=== PATIENT | female | born 1975 | race African-American/Black ===

== ENCOUNTER 2016-06-26 16:46 | Inpatient (IN) | payer OTHER ==
[~2016-06-26] VITALS: Ht 165.1 cm; Wt 60.1 kg
[~2016-06-26 16:46] MED LIST: DILAUDID4 MG PO; FENTANYL1 EAC5 TD; FOLIC ACID1 MG PO; HYDREA500 MG PO; HYDROXYUREA500 MG PO; MORPHINE SULFAT15 M1 PO; MULTIPLE VITAM1 EAC1 PO; PERCOCET 5/31 TABLET PO
[2016-06-26 18:32] LABS: IMM.RETIC FRACTION 33.2 % (3-19); MCH 29.5 PG (29.0-34.0); MCHC 36.7 G/DL (30.0-36.0); MCV 80.5 FL (83-99); MEAN PLAT.VOLUME 10.7 uM^3 (9.5-12.4); NRBC (%) 1.1 /100 WBC (0-0); PLATELET COUNT 392 K/uL (156-360); RBC DIS.WIDTH-CV 23.7 % (11.8-14.6); RBC DIS.WIDTH-SD 59.4 % (39-53); RED BLOOD COUNT 1.49 M/uL (3.80-5.20); RETIC HGB EQUIVALENT 35.3 (28-36); RETICULOCYTE COUNT > 18.0 % (0.5-1.8)
[2016-06-26 18:35] LABS: CHLORIDE 108 mEq/L (99-109); POTASSIUM 3.9 mEq/L (3.7-5.4); SODIUM 136 mEq/L (136-147)
[2016-06-26 18:38] LABS: GLUCOSE 95 mg/dL (70-99)
[2016-06-26 18:39] LABS: ANION GAP 9 MEQ/L (2-14)
[2016-06-26 18:40] LABS: TOTAL BILIRUBIN 6.9 mg/dL (0.0-1.0)
[2016-06-26 18:41] LABS: ALKALINE PHOSPHATASE 228 IU/L (3-129); GFR ESTIMATE (CALCULATED) > 59 mL/min/
[2016-06-26 18:42] LABS: UREA NITROGEN (BUN) 19 mg/dL (9-23)
[2016-06-26] MEDS ORDERED: HYDROXYUREA500 MG PO (19:10)
[2016-06-26] MEDS ORDERED: MORPHINE SULFAT15 M1 PO (19:11)
[2016-06-26] MEDS ORDERED: ALEVE220 M2 PO (19:11)
[2016-06-26 19:48] VITALS: BP 125/60
[2016-06-26 20:13] VITALS: BP 135/68
[2016-06-26 21:00] VITALS: BP 146/75
[2016-06-26 22:00] VITALS: BP 158/84
[2016-06-26 22:33] LABS: ADD MIUA? YES; BILIRUBIN NEGATIVE; BLOOD MODERATE; COLOR YELLOW ((YELLOW)); GLUCOSE (STRIP) NEGATIVE; KETONES NEGATIVE; LEUKOCYTES NEGATIVE; NITRITE NEGATIVE; PROTEIN (STRIP) 100; SPECIFIC GRAVITY 1.009 (1.000-1.030)
[2016-06-26 22:39] VITALS: BP 139/65
[2016-06-26 22:56] LABS: BACTERIA RARE /HPF; EPITHELIAL CELLS RARE /HPF; MUCUS TRACE /LPF; RED BLOOD CELLS 0-5 /HPF (0-5); UCUL ADDED? NO; WHITE BLOOD CELLS 0-5 /HPF (0-5)
[2016-06-27] VITALS (17 sets, daily range): BP systolic 118–157; BP diastolic 59–89
[2016-06-27 03:27] LABS: METH RESISTANT S AUREUS PCR NEGATIVE (NEGATIVE)
[2016-06-27 03:30] LABS: PROBE CHECK PASS; SPECIMEN PROCESSING CONTROL PASS
[2016-06-27 11:23] LABS: HEMATOCRIT 24.6 % (36.0-46.0); MCH 29.4 PG (29.0-34.0); MCHC 35.4 G/DL (30.0-36.0); MCV 83.1 FL (83-99); NRBC (%) 1.3 /100 WBC (0-0); RBC DIS.WIDTH-CV 21.1 % (11.8-14.6); RBC DIS.WIDTH-SD 60.4 % (39-53); WHITE BLOOD COUNT 17.1 K/uL (4.1-10.2)
[2016-06-27 11:25] LABS: RED BLOOD COUNT 2.96 M/uL (3.80-5.20)
[2016-06-27 11:31] LABS: ALKALINE PHOSPHATASE 213 IU/L (3-129); ANION GAP 8 MEQ/L (2-14); CHLORIDE 108 MEQ/L (99-109); DIRECT BILIRUBIN 4.3 mg/dL (0.0-0.3); GFR ESTIMATE (CALCULATED) > 59 mL/min/; GLUCOSE 123 mg/dL (70-99); POTASSIUM 4.2 MEQ/L (3.7-5.4); SAMPLE HEMOLYSIS CHECK 0; SAMPLE ICTERIC CHECK 2; SAMPLE LIPEMIA CHECK 0; SODIUM 139 MEQ/L (136-147); TOTAL BILIRUBIN 9.9 MG/DL (0.0-1.0); UREA NITROGEN (BUN) 18 mg/dL (9-23)
[2016-06-27 12:29] LABS: MEAN PLAT.VOLUME 10.7 uM^3 (9.5-12.4); PLATELET COUNT 353 K/uL (156-360)
[2016-06-28] VITALS (8 sets, daily range): BP systolic 109–141; BP diastolic 55–76
[2016-06-28 06:44] LABS: HEMATOCRIT 25.7 % (36.0-46.0); MCH 29.4 PG (29.0-34.0); MCHC 34.6 G/DL (30.0-36.0); MCV 84.8 FL (83-99); MEAN PLAT.VOLUME 11.2 uM^3 (9.5-12.4); NRBC (%) 0.9 /100 WBC (0-0); PLATELET COUNT 277 K/uL (156-360); RBC DIS.WIDTH-SD 58.5 % (39-53); RED BLOOD COUNT 3.03 M/uL (3.80-5.20); WHITE BLOOD COUNT 16.1 K/uL (4.1-10.2)
[2016-06-28 08:35] LABS: ANISOCYTOSIS 2+; BASOPHIL COUNT 0.1 K/uL (0-0.1); EOSINOPHIL (%) 7.3 % (0-5); EOSINOPHIL COUNT 1.2 K/uL (0-0.3); IMMATURE GRANULOCYTE (%) 0.7 % (0.0-0.7); IMMATURE GRANULOCYTE COUNT 0.1 K/uL; INSTRUMENT ABS NEUTROPHIL CT 7.8 K/uL; LYMPHOCYTE COUNT 5.3 K/uL (1.0-2.8); MACROCYTES 2+; MONOCYTE (%) 10.6 % (3-12); MONOCYTE COUNT 1.7 K/uL (0-0.8); NEUTROPHIL (%) 48.4 % (45-76); NEUTROPHIL COUNT 7.8 K/uL (1.8-6.4); PLAT.SUFFICIENCY ADEQUATE; POIKILOCYTOSIS 1+; POLYCHROMASIA 1+; SICKLE CELLS 2+
[2016-06-28 08:57] LABS: ALKALINE PHOSPHATASE 204 IU/L (3-129); ANION GAP 6 MEQ/L (2-14); CHLORIDE 105 MEQ/L (99-109); GFR ESTIMATE (CALCULATED) 53 mL/min/; GLUCOSE 112 mg/dL (70-99); POTASSIUM 4.1 MEQ/L (3.7-5.4); SAMPLE HEMOLYSIS CHECK 0; SAMPLE ICTERIC CHECK 2; SAMPLE LIPEMIA CHECK 0; TOTAL BILIRUBIN 9.4 MG/DL (0.0-1.0); UREA NITROGEN (BUN) 21 mg/dL (9-23)
[2016-06-28 09:07] LABS: SODIUM 132 MEQ/L (136-147)
[2016-06-28 14:37] LABS: AMPHETAMINES QUANT VALUE 0 NG/ML; BARBITUATES QUANT VALUE 0 NG/ML; BENZODIAZEPINES QUANT VALUE 0 NG/ML; BENZODIAZEPINES, URINE SCREEN Negative (200 ng/mL); MARIJUANA QUANT VALUE 0 NG/ML; PHENCYCLIDINE QUANT VALUE 0 NG/ML
[2016-06-29 00:49] VITALS: BP 145/73
[2016-06-29 06:44] LABS: HEMATOCRIT 23.7 % (36.0-46.0); MCH 28.9 PG (29.0-34.0); MCHC 34.2 G/DL (30.0-36.0); MCV 84.6 FL (83-99); MEAN PLAT.VOLUME 11.3 uM^3 (9.5-12.4); NRBC (%) 0.8 /100 WBC (0-0); PLATELET COUNT 237 K/uL (156-360); RBC DIS.WIDTH-CV 20.5 % (11.8-14.6); RBC DIS.WIDTH-SD 62.6 % (39-53); WHITE BLOOD COUNT 16.4 K/uL (4.1-10.2)
[2016-06-29 07:30] LABS: ALKALINE PHOSPHATASE 199 IU/L (3-129); ANION GAP 8 MEQ/L (2-14); C-REACTIVE PROTEIN 10.4 MG/L (0-10); CHLORIDE 106 MEQ/L (99-109); GFR ESTIMATE (CALCULATED) 58 mL/min/; GLUCOSE 114 mg/dL (70-99); SAMPLE HEMOLYSIS CHECK 0; SAMPLE ICTERIC CHECK 2; SAMPLE LIPEMIA CHECK 0; SODIUM 135 MEQ/L (136-147); TOTAL BILIRUBIN 10.7 MG/DL (0.0-1.0); UREA NITROGEN (BUN) 24 mg/dL (9-23)
[2016-06-29 08:01] VITALS: BP 133/70
[2016-06-29 08:35] LABS: BASOPHIL COUNT 0.1 K/uL (0-0.1); EOSINOPHIL (%) 8.9 % (0-5); EOSINOPHIL COUNT 1.5 K/uL (0-0.3); IMMATURE GRANULOCYTE (%) 0.7 % (0.0-0.7); IMMATURE GRANULOCYTE COUNT 0.1 K/uL; INSTRUMENT ABS NEUTROPHIL CT 7.6 K/uL; LYMPHOCYTE COUNT 5.2 K/uL (1.0-2.8); MONOCYTE (%) 11.7 % (3-12); MONOCYTE COUNT 1.9 K/uL (0-0.8); NEUTROPHIL (%) 46.5 % (45-76); NEUTROPHIL COUNT 7.6 K/uL (1.8-6.4)
[2016-06-29 11:25] VITALS: BP 161/76
[2016-06-29 16:27] VITALS: BP 155/86
[2016-06-29 22:06] VITALS: BP 150/81
[2016-06-30] VITALS (7 sets, daily range): BP systolic 100–165; BP diastolic 52–79
[2016-06-30 08:21] LABS: EOSINOPHIL (%) 9.6 % (0-5); EOSINOPHIL COUNT 1.5 K/uL (0-0.3); HEMATOCRIT 24.2 % (36.0-46.0); IMMATURE GRANULOCYTE (%) 0.4 % (0.0-0.7); IMMATURE GRANULOCYTE COUNT 0.1 K/uL; INSTRUMENT ABS NEUTROPHIL CT 7.4 K/uL; LYMPHOCYTE COUNT 4.7 K/uL (1.0-2.8); MCH 29.6 PG (29.0-34.0); MCHC 34.7 G/DL (30.0-36.0); MCV 85.2 FL (83-99); MEAN PLAT.VOLUME 11.6 uM^3 (9.5-12.4); MONOCYTE (%) 11.9 % (3-12); MONOCYTE COUNT 1.9 K/uL (0-0.8); NEUTROPHIL (%) 47.4 % (45-76); NEUTROPHIL COUNT 7.4 K/uL (1.8-6.4); NRBC (%) 0.5 /100 WBC (0-0); PLATELET COUNT 254 K/uL (156-360); RBC DIS.WIDTH-SD 64.8 % (39-53); RED BLOOD COUNT 2.84 M/uL (3.80-5.20); WHITE BLOOD COUNT 15.6 K/uL (4.1-10.2)
[2016-06-30 08:42] LABS: ANION GAP 5 MEQ/L (2-14); CHLORIDE 105 MEQ/L (99-109); GFR ESTIMATE (CALCULATED) 58 mL/min/; GLUCOSE 95 mg/dL (70-99); POTASSIUM 4.6 MEQ/L (3.7-5.4); SAMPLE HEMOLYSIS CHECK 0; SAMPLE ICTERIC CHECK 2; SAMPLE LIPEMIA CHECK 0; SODIUM 134 MEQ/L (136-147); UREA NITROGEN (BUN) 26 mg/dL (9-23)
[2016-06-30 10:42] LABS: HBSG INDEX 0.23
[2016-06-30 10:43] LABS: ANTI-HEPATITIS A VIRUS (IGM) Nonreactive; HAV INDEX 0.13; HPCA INDEX 0.44
[2016-06-30 10:44] LABS: ANTI-HEPATITIS B CORE (IGM) Nonreactive; HBC IgM INDEX 0.08
[2016-07-01 03:30] VITALS: BP 149/83
[2016-07-01 06:43] LABS: EOSINOPHIL (%) 9.3 % (0-5); EOSINOPHIL COUNT 1.4 K/uL (0-0.3); HEMATOCRIT 23.3 % (36.0-46.0); IMMATURE GRANULOCYTE (%) 0.5 % (0.0-0.7); IMMATURE GRANULOCYTE COUNT 0.1 K/uL; INSTRUMENT ABS NEUTROPHIL CT 6.5 K/uL; LYMPHOCYTE COUNT 5.2 K/uL (1.0-2.8); MCH 28.8 PG (29.0-34.0); MCHC 33.5 G/DL (30.0-36.0); MEAN PLAT.VOLUME 11.3 uM^3 (9.5-12.4); MONOCYTE COUNT 1.6 K/uL (0-0.8); NEUTROPHIL (%) 43.6 % (45-76); NEUTROPHIL COUNT 6.5 K/uL (1.8-6.4); NRBC (%) 0.5 /100 WBC (0-0); PLATELET COUNT 251 K/uL (156-360); RBC DIS.WIDTH-CV 21.5 % (11.8-14.6); RBC DIS.WIDTH-SD 67.3 % (39-53); RED BLOOD COUNT 2.71 M/uL (3.80-5.20); WHITE BLOOD COUNT 14.8 K/uL (4.1-10.2)
[2016-07-01 07:08] LABS: ALKALINE PHOSPHATASE 217 IU/L (3-129); ANION GAP 7 MEQ/L (2-14); CHLORIDE 110 MEQ/L (99-109); DIRECT BILIRUBIN 4.1 mg/dL (0.0-0.3); GFR ESTIMATE (CALCULATED) > 59 mL/min/; GLUCOSE 113 mg/dL (70-99); POTASSIUM 4.7 MEQ/L (3.7-5.4); SAMPLE HEMOLYSIS CHECK 0; SAMPLE ICTERIC CHECK 2; SAMPLE LIPEMIA CHECK 0; UREA NITROGEN (BUN) 26 mg/dL (9-23)
[2016-07-01 07:10] LABS: SODIUM 141 MEQ/L (136-147); TOTAL BILIRUBIN 8.2 MG/DL (0.0-1.0)
[2016-07-01 08:45] VITALS: BP 134/61
[2016-07-01 11:06] VITALS: BP 142/67
[2016-07-02 00:35] VITALS: BP 157/65
[2016-07-02 03:55] VITALS: BP 142/90
[2016-07-02 07:57] VITALS: BP 131/68
[2016-07-02 08:56] LABS: BASOPHIL COUNT 0.1 K/uL (0-0.1); EOSINOPHIL (%) 9.1 % (0-5); EOSINOPHIL COUNT 1.4 K/uL (0-0.3); HEMATOCRIT 24.4 % (36.0-46.0); IMMATURE GRANULOCYTE (%) 0.5 % (0.0-0.7); IMMATURE GRANULOCYTE COUNT 0.1 K/uL; INSTRUMENT ABS NEUTROPHIL CT 6.7 K/uL; LYMPHOCYTE COUNT 5.3 K/uL (1.0-2.8); MCH 28.8 PG (29.0-34.0); MCHC 33.2 G/DL (30.0-36.0); MCV 86.8 FL (83-99); MEAN PLAT.VOLUME 11.7 uM^3 (9.5-12.4); MONOCYTE (%) 9.8 % (3-12); MONOCYTE COUNT 1.5 K/uL (0-0.8); NEUTROPHIL (%) 44.9 % (45-76); NEUTROPHIL COUNT 6.7 K/uL (1.8-6.4); NRBC (%) 0.3 /100 WBC (0-0); PLATELET COUNT 282 K/uL (156-360); RBC DIS.WIDTH-SD 69.5 % (39-53); RED BLOOD COUNT 2.81 M/uL (3.80-5.20); WHITE BLOOD COUNT 14.9 K/uL (4.1-10.2)
[2016-07-02 09:22] LABS: ANION GAP 7 MEQ/L (2-14); CHLORIDE 108 MEQ/L (99-109); GFR ESTIMATE (CALCULATED) > 59 mL/min/; GLUCOSE 90 mg/dL (70-99); POTASSIUM 4.8 MEQ/L (3.7-5.4); SAMPLE HEMOLYSIS CHECK 0; SAMPLE ICTERIC CHECK 2; SAMPLE LIPEMIA CHECK 0; SODIUM 139 MEQ/L (136-147); UREA NITROGEN (BUN) 25 mg/dL (9-23)
[2016-07-02 11:55] VITALS: BP 133/74
[2016-07-02] MEDS ORDERED: HYDROXYUREA500 MG PO (13:20)
[2016-07-02] MEDS ORDERED: TYLENOL WITH C1 EACH PO (13:20)
== END 2016-07-02 16:04 | disposition home or self-care (01) | DRG 812 ==
LOC: EME 16:46 → EDOF 19:41 → 2EAST 19:41
PROVIDERS: Family Medicine; Hospitalist; Internal Medicine; Physician Assistant
PROC: 30233N1 Transfusion of Nonautologous Red Blood Cells into Peripheral Vein, Percutaneous Approach (ICD-10-PCS; principal; 2016-06-26)
DX: D57.00 Hb-SS disease with crisis, unspecified (principal); N17.9 Acute kidney failure, unspecified; R06.00 Dyspnea, unspecified; R74.8 Abnormal levels of other serum enzymes; G89.29 Other chronic pain; H54.41 Blindness, right eye, normal vision left eye; Z23 Encounter for immunization; Z95.828 Presence of other vascular implants and grafts; Z91.120 Patient's intentional underdosing of medication regimen due to financial hardship; Z91.19 Patient's noncompliance with other medical treatment and regimen
CPT/HCPCS: 71020; 80048; 80053; 80074; 80076; 80306 90; 81003; 85025; 85027; 85045; 86140; 86850; 86900; 86901; 86920; 87040; 87641; 93005; 94799; 99202; 99281; 99285; J1170; J1644; J1885; J2270; J2405; J7030; J7120; P9016; P9040

== ENCOUNTER 2016-09-18 19:54 | Inpatient (IN) | payer OTHER ==
[~2016-09-18] VITALS: Ht 166.4 cm; Wt 59.6 kg
[~2016-09-18 19:54] MED LIST changes: +ALEVE220 M2 PO; +TYLENOL WITH C1 EACH PO
[2016-09-18 22:46] LABS: HEMATOCRIT 12.6 % (36.0-46.0); MCH 29.2 PG (29.0-34.0); MCHC 33.3 G/DL (30.0-36.0); MCV 87.5 FL (83-99); MEAN PLAT.VOLUME 10.7 uM^3 (9.5-12.4); PLATELET COUNT 363 K/uL (156-360); RBC DIS.WIDTH-CV 26.5 % (11.8-14.6); RBC DIS.WIDTH-SD 70.3 % (39-53); RED BLOOD COUNT 1.44 M/uL (3.80-5.20); WHITE BLOOD COUNT 24.3 K/uL (4.1-10.2)
[2016-09-18 23:32] LABS: TOTAL BILIRUBIN 6.5 mg/dL (0.0-1.0)
[2016-09-18 23:33] LABS: ALKALINE PHOSPHATASE 207 IU/L (3-129)
[2016-09-18 23:36] LABS: DIRECT BILIRUBIN 2.4 mg/dL (0.0-0.3)
[2016-09-18 23:37] LABS: CREATINE KINASE 29 IU/L (1-294); LIPASE 62 U/L (1.0-51.0)
[2016-09-18 23:43] LABS: QUANTITATIVE HCG < 4.0 MIU/ML; TROP-I INTERPRETATION NEGATIVE; TROPONIN-I < 0.01 ng/mL (0.0-0.30)
[2016-09-18 23:56] LABS: EOSINOPHIL (%) 3.7 % (0-5); EOSINOPHIL COUNT 0.9 K/uL (0-0.3); HEMATOLOGY COMMENT 1 SMEAR COMPATIBLE; IMM.RETIC FRACTION 29.5 % (3-19); IMMATURE GRANULOCYTE COUNT 0.3 K/uL; INSTRUMENT ABS NEUTROPHIL CT 12.6 K/uL; LYMPHOCYTE COUNT 6.9 K/uL (1.0-2.8); MONOCYTE (%) 15.6 % (3-12); MONOCYTE COUNT 3.9 K/uL (0-0.8); NEUTROPHIL COUNT 12.6 K/uL (1.8-6.4); PLAT.SUFFICIENCY ADEQUATE; RETIC HGB EQUIVALENT 30.8 (28-36); RETICULOCYTE COUNT > 18.0 % (0.5-1.8)
[2016-09-18 23:57] LABS: SICKLE CELLS 1+
[2016-09-18 23:58] LABS: ANISOCYTOSIS 1+; MACROCYTES 1+; OVALOCYTES 1+; POIKILOCYTOSIS 2+; POLYCHROMASIA 1+; SCHISTOCYTES 1+
[2016-09-19] VITALS (18 sets, daily range): BP systolic 112–144; BP diastolic 57–85
[2016-09-19 00:04] LABS: D-DIMER ELISA > 4.00 mg/L FEU (< 0.57); INTER. NORMALIZED RATIO 1.3; PROTHROMBIN TIME 13.1 (9.2-11.2); PTT 22.5 (25-32)
[2016-09-19 00:51] LABS: CHLORIDE 110 mEq/L (99-109); POTASSIUM 4.5 mEq/L (3.7-5.4); SODIUM 137 mEq/L (136-147)
[2016-09-19 00:53] LABS: GLUCOSE 102 mg/dL (70-99)
[2016-09-19 00:54] LABS: ANION GAP 9 MEQ/L (2-14)
[2016-09-19 00:57] LABS: GFR ESTIMATE (CALCULATED) 53 mL/min/
[2016-09-19 00:58] LABS: UREA NITROGEN (BUN) 29 mg/dL (9-23)
[2016-09-19 08:39] LABS: BASOPHIL COUNT 0.1 K/uL (0-0.1); HEMATOCRIT 19.1 % (36.0-46.0); IMMATURE GRANULOCYTE (%) 0.7 % (0.0-0.7); IMMATURE GRANULOCYTE COUNT 0.1 K/uL; INSTRUMENT ABS NEUTROPHIL CT 10.7 K/uL; LYMPHOCYTE COUNT 5.4 K/uL (1.0-2.8); MCH 31.6 PG (29.0-34.0); MCHC 35.1 G/DL (30.0-36.0); MCV 90.1 FL (83-99); MEAN PLAT.VOLUME 10.9 uM^3 (9.5-12.4); MONOCYTE (%) 13.5 % (3-12); MONOCYTE COUNT 2.7 K/uL (0-0.8); NEUTROPHIL (%) 53.5 % (45-76); NEUTROPHIL COUNT 10.7 K/uL (1.8-6.4); NRBC (%) 1.3 /100 WBC (0-0); PLATELET COUNT 324 K/uL (156-360); RBC DIS.WIDTH-CV 21.5 % (11.8-14.6)
[2016-09-19 08:41] LABS: RED BLOOD COUNT 2.12 M/uL (3.80-5.20)
[2016-09-19 08:57] LABS: ANION GAP 8 MEQ/L (2-14); CHLORIDE 111 MEQ/L (99-109); GFR ESTIMATE (CALCULATED) > 59 mL/min/; GLUCOSE 129 mg/dL (70-99); POTASSIUM 4.3 MEQ/L (3.7-5.4); SAMPLE HEMOLYSIS CHECK 0; SAMPLE ICTERIC CHECK 1; SAMPLE LIPEMIA CHECK 0; SODIUM 136 MEQ/L (136-147); UREA NITROGEN (BUN) 23 mg/dL (9-23)
[2016-09-19 09:56] LABS: TROP-I INTERPRETATION NEGATIVE; TROPONIN-I < 0.01 ng/mL (0.0-0.30)
[2016-09-19 10:05] LABS: HEMATOCRIT 18.2 % (36.0-46.0); MCV 88.8 FL (83-99)
[2016-09-19 15:09] LABS: TROP-I INTERPRETATION NEGATIVE; TROPONIN-I < 0.01 ng/mL (0.0-0.30)
[2016-09-20 00:13] VITALS: BP 127/56
[2016-09-20 03:02] VITALS: BP 123/63
[2016-09-20 06:48] LABS: ABSOLUTE RETICULOCYTE CT. 0.4 M/uL (0.02-0.08); IMM.RETIC FRACTION 28.6 % (3-19)
[2016-09-20 06:50] VITALS: BP 107/55
[2016-09-20 06:50] LABS: RETICULOCYTE COUNT 15.7 % (0.5-1.8)
[2016-09-20 06:51] LABS: HEMATOCRIT 19.3 % (36.0-46.0); MCH 31.7 PG (29.0-34.0); MCHC 36.8 G/DL (30.0-36.0); MCV 86.2 FL (83-99); NRBC (%) 0.8 /100 WBC (0-0); RBC DIS.WIDTH-CV 19.6 % (11.8-14.6); RBC DIS.WIDTH-SD 54.7 % (39-53); RED BLOOD COUNT 2.24 M/uL (3.80-5.20); WHITE BLOOD COUNT 17.7 K/uL (4.1-10.2)
[2016-09-20 07:18] LABS: ALKALINE PHOSPHATASE 203 IU/L (3-129); ANION GAP 6 MEQ/L (2-14); CHLORIDE 110 MEQ/L (99-109); GFR ESTIMATE (CALCULATED) 58 mL/min/; GLUCOSE 104 mg/dL (70-99); POTASSIUM 4.9 MEQ/L (3.7-5.4); SAMPLE HEMOLYSIS CHECK 0; SAMPLE ICTERIC CHECK 1; SAMPLE LIPEMIA CHECK 0; SODIUM 137 MEQ/L (136-147); TOTAL BILIRUBIN 5.8 MG/DL (0.0-1.0); UREA NITROGEN (BUN) 23 mg/dL (9-23)
[2016-09-20 07:28] LABS: MEAN PLAT.VOLUME 10.9 uM^3 (9.5-12.4); PLAT.SUFFICIENCY ADEQUATE; PLATELET COUNT 269 K/uL (156-360)
[2016-09-20 11:10] VITALS: BP 110/55
[2016-09-20 15:10] VITALS: BP 136/65
[2016-09-20 19:00] VITALS: BP 112/56
[2016-09-21] VITALS (14 sets, daily range): BP systolic 111–149; BP diastolic 57–99
[2016-09-21 06:10] LABS: ABSOLUTE RETICULOCYTE CT. 0.3 M/uL (0.02-0.08); IMM.RETIC FRACTION 18.3 % (3-19); RETIC HGB EQUIVALENT 29.9 (28-36)
[2016-09-21 06:29] LABS: RETICULOCYTE COUNT 13.2 % (0.5-1.8)
[2016-09-21 06:43] LABS: ALKALINE PHOSPHATASE 200 IU/L (3-129); ANION GAP 8 MEQ/L (2-14); CHLORIDE 114 MEQ/L (99-109); GFR ESTIMATE (CALCULATED) 58 mL/min/; GLUCOSE 99 mg/dL (70-99); POTASSIUM 5.1 MEQ/L (3.7-5.4); SAMPLE HEMOLYSIS CHECK 0; SAMPLE ICTERIC CHECK 2; SAMPLE LIPEMIA CHECK 0; SODIUM 140 MEQ/L (136-147); TOTAL BILIRUBIN 5.9 MG/DL (0.0-1.0); UREA NITROGEN (BUN) 23 mg/dL (9-23)
[2016-09-21 06:44] LABS: HEMATOCRIT 18.8 % (36.0-46.0); MCH 30.9 PG (29.0-34.0); MCHC 35.6 G/DL (30.0-36.0); MCV 86.6 FL (83-99); NRBC (%) 0.7 /100 WBC (0-0); RBC DIS.WIDTH-CV 19.5 % (11.8-14.6); RBC DIS.WIDTH-SD 58.8 % (39-53); RED BLOOD COUNT 2.17 M/uL (3.80-5.20); WHITE BLOOD COUNT 17.7 K/uL (4.1-10.2)
[2016-09-21 06:55] LABS: MEAN PLAT.VOLUME 10.9 uM^3 (9.5-12.4); PLAT.SUFFICIENCY ADEQUATE; PLATELET COUNT 284 K/uL (156-360)
[2016-09-22 06:03] VITALS: BP 119/63
[2016-09-22 06:48] LABS: ABSOLUTE RETICULOCYTE CT. 0.2 M/uL (0.02-0.08); IMM.RETIC FRACTION 7.8 % (3-19); RETIC HGB EQUIVALENT 29.4 (28-36)
[2016-09-22 06:50] LABS: RETICULOCYTE COUNT 7.9 % (0.5-1.8)
[2016-09-22 07:01] LABS: HEMATOCRIT 25.2 % (36.0-46.0); MCH 30.9 PG (29.0-34.0); MCHC 35.3 G/DL (30.0-36.0); MCV 87.5 FL (83-99); MEAN PLAT.VOLUME 11.5 uM^3 (9.5-12.4); NRBC (%) 0.7 /100 WBC (0-0); PLATELET COUNT 309 K/uL (156-360); RBC DIS.WIDTH-CV 18.3 % (11.8-14.6); RBC DIS.WIDTH-SD 57.1 % (39-53); WHITE BLOOD COUNT 15.1 K/uL (4.1-10.2)
[2016-09-22 07:03] LABS: RED BLOOD COUNT 2.88 M/uL (3.80-5.20)
[2016-09-22 07:17] LABS: ALKALINE PHOSPHATASE 229 IU/L (3-129); ANION GAP 9 MEQ/L (2-14); CHLORIDE 112 MEQ/L (99-109); GFR ESTIMATE (CALCULATED) 49 mL/min/; GLUCOSE 83 mg/dL (70-99); POTASSIUM 5.5 MEQ/L (3.7-5.4); SAMPLE HEMOLYSIS CHECK 0; SAMPLE ICTERIC CHECK 2; SAMPLE LIPEMIA CHECK 0; SODIUM 139 MEQ/L (136-147); UREA NITROGEN (BUN) 27 mg/dL (9-23)
[2016-09-22 07:18] LABS: TOTAL BILIRUBIN 7.9 MG/DL (0.0-1.0)
[2016-09-22 07:35] VITALS: BP 170/93
[2016-09-22 11:40] VITALS: BP 143/70
[2016-09-22 15:33] VITALS: BP 166/80
[2016-09-22 20:39] VITALS: BP 160/76
[2016-09-23] VITALS (10 sets, daily range): BP systolic 70–181; BP diastolic 34–88
[2016-09-23 06:42] LABS: ABSOLUTE RETICULOCYTE CT. 0.1 M/uL (0.02-0.08); IMM.RETIC FRACTION 6.4 % (3-19); RETIC HGB EQUIVALENT 27.8 (28-36)
[2016-09-23 06:44] LABS: HEMATOCRIT 23.8 % (36.0-46.0); MCH 30.2 PG (29.0-34.0); MCV 88.8 FL (83-99); MEAN PLAT.VOLUME 11.1 uM^3 (9.5-12.4); NRBC (%) 0.4 /100 WBC (0-0); PLATELET COUNT 273 K/uL (156-360); RBC DIS.WIDTH-CV 19.2 % (11.8-14.6); RED BLOOD COUNT 2.68 M/uL (3.80-5.20); RETICULOCYTE COUNT 4.5 % (0.5-1.8); WHITE BLOOD COUNT 13.6 K/uL (4.1-10.2)
[2016-09-23 07:12] LABS: ANION GAP 8 MEQ/L (2-14); CHLORIDE 115 MEQ/L (99-109); GFR ESTIMATE (CALCULATED) 53 mL/min/; GLUCOSE 82 mg/dL (70-99); POTASSIUM 4.9 MEQ/L (3.7-5.4); SAMPLE HEMOLYSIS CHECK 0; SAMPLE ICTERIC CHECK 2; SAMPLE LIPEMIA CHECK 0; SODIUM 140 MEQ/L (136-147); UREA NITROGEN (BUN) 31 mg/dL (9-23)
[2016-09-24 07:22] LABS: HEMATOCRIT 24.2 % (36.0-46.0); IMM.RETIC FRACTION 2.7 % (3-19); MCH 30.4 PG (29.0-34.0); MCHC 33.9 G/DL (30.0-36.0); MCV 89.6 FL (83-99); NRBC (%) 0.3 /100 WBC (0-0); RBC DIS.WIDTH-CV 20.2 % (11.8-14.6); RBC DIS.WIDTH-SD 65.3 % (39-53); RETIC HGB EQUIVALENT 28.6 (28-36); WHITE BLOOD COUNT 14.5 K/uL (4.1-10.2)
[2016-09-24 07:40] LABS: RETICULOCYTE COUNT 2.9 % (0.5-1.8)
[2016-09-24 07:51] LABS: ANION GAP 7 MEQ/L (2-14); CHLORIDE 115 MEQ/L (99-109); GFR ESTIMATE (CALCULATED) 49 mL/min/; GLUCOSE 88 mg/dL (70-99); LACTATE DEHYDROGENASE 885 IU/L (20-246); POTASSIUM 5.1 MEQ/L (3.7-5.4); SAMPLE HEMOLYSIS CHECK 0; SAMPLE ICTERIC CHECK 2; SAMPLE LIPEMIA CHECK 0; SODIUM 140 MEQ/L (136-147); UREA NITROGEN (BUN) 31 mg/dL (9-23)
[2016-09-24 08:01] LABS: MEAN PLAT.VOLUME 11.5 uM^3 (9.5-12.4); PLAT.SUFFICIENCY ADEQUATE; PLATELET COUNT 304 K/uL (156-360)
[2016-09-24 09:01] VITALS: BP 141/76
[2016-09-24 15:59] VITALS: BP 154/74
[2016-09-24 23:59] VITALS: BP 148/69
[2016-09-25 08:00] VITALS: BP 147/74
[2016-09-25 09:08] LABS: IMM.RETIC FRACTION 1.5 % (3-19); RETIC HGB EQUIVALENT 29.6 (28-36)
[2016-09-25 09:11] LABS: RETICULOCYTE COUNT 1.8 % (0.5-1.8)
[2016-09-25 09:17] LABS: BASOPHIL COUNT 0.1 K/uL (0-0.1); HEMATOCRIT 22.7 % (36.0-46.0); IMMATURE GRANULOCYTE (%) 0.4 % (0.0-0.7); IMMATURE GRANULOCYTE COUNT 0.1 K/uL; INSTRUMENT ABS NEUTROPHIL CT 5.6 K/uL; LYMPHOCYTE COUNT 3.8 K/uL (1.0-2.8); MCH 30.2 PG (29.0-34.0); MCV 91.5 FL (83-99); MEAN PLAT.VOLUME 11.5 uM^3 (9.5-12.4); MONOCYTE (%) 14.2 % (3-12); MONOCYTE COUNT 1.7 K/uL (0-0.8); NEUTROPHIL (%) 45.4 % (45-76); NEUTROPHIL COUNT 5.6 K/uL (1.8-6.4); NRBC (%) 0.2 /100 WBC (0-0); PLATELET COUNT 303 K/uL (156-360); RBC DIS.WIDTH-CV 20.8 % (11.8-14.6); RBC DIS.WIDTH-SD 68.8 % (39-53); RED BLOOD COUNT 2.48 M/uL (3.80-5.20); WHITE BLOOD COUNT 12.2 K/uL (4.1-10.2)
[2016-09-25 09:36] LABS: ALKALINE PHOSPHATASE 189 IU/L (3-129); ANION GAP 7 MEQ/L (2-14); CHLORIDE 118 MEQ/L (99-109); GFR ESTIMATE (CALCULATED) 53 mL/min/; GLUCOSE 110 mg/dL (70-99); POTASSIUM 4.9 MEQ/L (3.7-5.4); SAMPLE HEMOLYSIS CHECK 0; SAMPLE ICTERIC CHECK 2; SAMPLE LIPEMIA CHECK 0; SODIUM 142 MEQ/L (136-147); TOTAL BILIRUBIN 6.5 MG/DL (0.0-1.0); UREA NITROGEN (BUN) 30 mg/dL (9-23)
[2016-09-25] MEDS ORDERED: MORPHINE SULFAT15 MG PO (16:10)
[2016-09-25] MEDS ORDERED: BENADRYL50 MG PO (16:13)
[2016-09-26 07:55] VITALS: BP 140/54
[2016-09-26 09:07] LABS: BASOPHIL COUNT 0.1 K/uL (0-0.1); EOSINOPHIL (%) 9.6 % (0-5); EOSINOPHIL COUNT 1.2 K/uL (0-0.3); HEMATOCRIT 21.9 % (36.0-46.0); IMM.RETIC FRACTION 3.7 % (3-19); IMMATURE GRANULOCYTE (%) 0.3 % (0.0-0.7); INSTRUMENT ABS NEUTROPHIL CT 6.1 K/uL; LYMPHOCYTE COUNT 3.2 K/uL (1.0-2.8); MCH 30.4 PG (29.0-34.0); MCHC 32.9 G/DL (30.0-36.0); MCV 92.4 FL (83-99); MEAN PLAT.VOLUME 11.7 uM^3 (9.5-12.4); MONOCYTE (%) 12.5 % (3-12); MONOCYTE COUNT 1.5 K/uL (0-0.8); NEUTROPHIL (%) 50.4 % (45-76); NEUTROPHIL COUNT 6.1 K/uL (1.8-6.4); NRBC (%) 0.2 /100 WBC (0-0); PLATELET COUNT 306 K/uL (156-360); RBC DIS.WIDTH-CV 21.1 % (11.8-14.6); RBC DIS.WIDTH-SD 69.9 % (39-53); RED BLOOD COUNT 2.37 M/uL (3.80-5.20); RETIC HGB EQUIVALENT 28.7 (28-36)
[2016-09-26 09:17] LABS: RETICULOCYTE COUNT 1.1 % (0.5-1.8)
[2016-09-26 09:48] LABS: ANION GAP 7 MEQ/L (2-14); CHLORIDE 119 MEQ/L (99-109); GFR ESTIMATE (CALCULATED) 49 mL/min/; GLUCOSE 90 mg/dL (70-99); LACTATE DEHYDROGENASE 816 IU/L (20-246); POTASSIUM 5.1 MEQ/L (3.7-5.4); SAMPLE HEMOLYSIS CHECK 0; SAMPLE ICTERIC CHECK 1; SAMPLE LIPEMIA CHECK 0; SODIUM 143 MEQ/L (136-147); UREA NITROGEN (BUN) 29 mg/dL (9-23)
== END 2016-09-26 14:00 | disposition home or self-care (01) | DRG 812 ==
LOC: RME 19:54 → EME 19:54 → EDOF 09-19 03:00 → 2EAST 09-19 03:00
PROVIDERS: Hospitalist; Internal Medicine; Internal Medicine Medical Oncology; Physician Assistant
PROC: 30233N1 Transfusion of Nonautologous Red Blood Cells into Peripheral Vein, Percutaneous Approach (ICD-10-PCS; principal; 2016-09-19)
DX: D57.00 Hb-SS disease with crisis, unspecified (principal); G89.29 Other chronic pain; I36.1 Nonrheumatic tricuspid (valve) insufficiency; I12.9 Hypertensive chronic kidney disease with stage 1 through stage 4 chronic kidney disease, or unspecified chronic kidney disease; N18.3 Chronic kidney disease, stage 3 (moderate); I27.2 Other secondary pulmonary hypertension; K50.90 Crohn's disease, unspecified, without complications; L29.9 Pruritus, unspecified; N17.9 Acute kidney failure, unspecified; R17 Unspecified jaundice; R94.31 Abnormal electrocardiogram [ECG] [EKG]; R40.0 Somnolence; T40.2X5A Adverse effect of other opioids, initial encounter; Z79.891 Long term (current) use of opiate analgesic; Z91.19 Patient's noncompliance with other medical treatment and regimen
CPT/HCPCS: 71010; 71020; 71275; 73030; 80048; 80053; 80076; 81003; 82550; 83605; 83615; 83690; 84484; 84702; 85014; 85018; 85025; 85027; 85045; 85379; 85610; 85730; 86900; 86901; 86920; 87040; 93005; 94799; 99281; 99285; J1170; J1200; J1644; J1885; J2270; J2405; J7030; J7050; P9016; P9040

== ENCOUNTER → 2016-10-22 | Outpatient (CLI) | payer OTHER ==
[~2016-10-22] MED LIST changes: +BENADRYL50 MG PO; +MORPHINE SULFAT15 MG PO
== END | disposition home or self-care (01) ==
LOC: NUC 08:30
DX: D57.00 Hb-SS disease with crisis, unspecified (principal); R94.31 Abnormal electrocardiogram [ECG] [EKG]
CPT/HCPCS: 93017

== ENCOUNTER → 2016-10-23 | Outpatient (CLI) | payer OTHER | END | disposition home or self-care (01) | LOC: NUC 08:30 | DX: D57.00 Hb-SS disease with crisis, unspecified (principal); R94.31 Abnormal electrocardiogram [ECG] [EKG] | CPT/HCPCS: 78451; 93017; A9500; C1753 ==

== ENCOUNTER 2016-11-28 21:27 | Inpatient (IN) | payer OTHER ==
[~2016-11-28] VITALS: Ht 165.1 cm; Wt 57.2 kg
[2016-11-28 23:16] LABS: ABSOLUTE RETICULOCYTE CT. 0.2 M/uL (0.02-0.08); IMM.RETIC FRACTION 27.9 % (3-19); RETIC HGB EQUIVALENT 34.2 (28-36); RETICULOCYTE COUNT 13.2 % (0.5-1.8)
[2016-11-28 23:21] LABS: HEMATOCRIT 12.7 % (36.0-46.0); MCH 29.7 PG (29.0-34.0); MCV 80.4 FL (83-99); MEAN PLAT.VOLUME 10.7 uM^3 (9.5-12.4); NRBC (%) 0.4 /100 WBC (0-0); PLATELET COUNT 466 K/uL (156-360); RBC DIS.WIDTH-CV 18.7 % (11.8-14.6); RBC DIS.WIDTH-SD 50.7 % (39-53); RED BLOOD COUNT 1.58 M/uL (3.80-5.20); WHITE BLOOD COUNT 22.6 K/uL (4.1-10.2)
[2016-11-28 23:32] LABS: CHLORIDE 105 mEq/L (99-109); POTASSIUM 3.6 mEq/L (3.7-5.4); SODIUM 135 mEq/L (136-147)
[2016-11-28 23:34] LABS: GLUCOSE 122 mg/dL (70-99)
[2016-11-28 23:35] LABS: ANION GAP 11 MEQ/L (2-14)
[2016-11-28 23:36] LABS: TOTAL BILIRUBIN 4.6 mg/dL (0.0-1.0)
[2016-11-28 23:38] LABS: ALKALINE PHOSPHATASE 234 IU/L (3-129); GFR ESTIMATE (CALCULATED) 46 mL/min/
[2016-11-28 23:39] LABS: UREA NITROGEN (BUN) 33 mg/dL (9-23)
[2016-11-28 23:40] LABS: DIRECT BILIRUBIN 1.6 mg/dL (0.0-0.3); TROP-I INTERPRETATION NEGATIVE; TROPONIN-I < 0.01 ng/mL (0.0-0.30)
[2016-11-28 23:41] LABS: LIPASE 31 U/L (1.0-51.0)
[2016-11-28 23:52] LABS: QUANTITATIVE HCG < 4.0 MIU/ML
[2016-11-29] VITALS (22 sets, daily range): BP systolic 102–157; BP diastolic 7–91
[2016-11-29 00:15] LABS: INTER. NORMALIZED RATIO 1.4; PROTHROMBIN TIME 15.3 SEC (10.2-12.9)
[2016-11-29 00:17] LABS: PTT 31.3 SEC (25-37)
[2016-11-29 07:57] LABS: ANION GAP 7 MEQ/L (2-14); CHLORIDE 112 MEQ/L (99-109); SAMPLE HEMOLYSIS CHECK 0; SAMPLE ICTERIC CHECK 1; SAMPLE LIPEMIA CHECK 0; SODIUM 138 MEQ/L (136-147); TOTAL BILIRUBIN 3.7 MG/DL (0.0-1.0)
[2016-11-29 07:58] LABS: HEMATOCRIT 18.7 % (36.0-46.0); MCH 29.2 PG (29.0-34.0); MCHC 35.3 G/DL (30.0-36.0); MCV 82.7 FL (83-99); MEAN PLAT.VOLUME 10.3 uM^3 (9.5-12.4); NRBC (%) 0.5 /100 WBC (0-0); PLATELET COUNT 377 K/uL (156-360); POTASSIUM 4.9 MEQ/L (3.7-5.4); RBC DIS.WIDTH-SD 52.2 % (39-53)
[2016-11-29 07:59] LABS: RED BLOOD COUNT 2.26 M/uL (3.80-5.20)
[2016-11-29 08:03] LABS: ALKALINE PHOSPHATASE 202 IU/L (3-129); GFR ESTIMATE (CALCULATED) 49 mL/min/; GLUCOSE 125 mg/dL (70-99); UREA NITROGEN (BUN) 31 mg/dL (9-23)
[2016-11-29 08:07] LABS: TROP-I INTERPRETATION NEGATIVE; TROPONIN-I 0.01 ng/mL (0.0-0.30)
[2016-11-29 10:39] LABS: ADD MIUA? YES; BILIRUBIN NEGATIVE; BLOOD MODERATE; COLOR YELLOW ((YELLOW)); GLUCOSE (STRIP) NEGATIVE; KETONES NEGATIVE; LEUKOCYTES NEGATIVE; NITRITE NEGATIVE; PROTEIN (STRIP) NEGATIVE; SPECIFIC GRAVITY 1.005 (1.000-1.030); UROBILINOGEN 0.2 MG/DL (0.2-1.0)
[2016-11-29 10:44] LABS: BACTERIA NONE SEEN /HPF; EPITHELIAL CELLS RARE /HPF; MUCUS NONE SEEN /LPF; RED BLOOD CELLS 0-5 /HPF (0-5); WHITE BLOOD CELLS NONE SEEN /HPF (0-5)
[2016-11-29 13:33] LABS: TROP-I INTERPRETATION NEGATIVE; TROPONIN-I < 0.01 ng/mL (0.0-0.30)
[2016-11-29 19:02] LABS: HEMATOCRIT 27.4 % (36.0-46.0)
[2016-11-30 05:31] VITALS: BP 130/75
[2016-11-30 07:13] LABS: HEMATOCRIT 24.7 % (36.0-46.0); MCH 29.8 PG (29.0-34.0); MCHC 35.2 G/DL (30.0-36.0); MCV 84.6 FL (83-99); MEAN PLAT.VOLUME 10.8 uM^3 (9.5-12.4); NRBC (%) 0.4 /100 WBC (0-0); PLATELET COUNT 348 K/uL (156-360); RBC DIS.WIDTH-CV 18.6 % (11.8-14.6); RBC DIS.WIDTH-SD 56.5 % (39-53)
[2016-11-30 07:20] LABS: RED BLOOD COUNT 2.92 M/uL (3.80-5.20)
[2016-11-30 07:41] LABS: ANION GAP 6 MEQ/L (2-14); CHLORIDE 112 MEQ/L (99-109); GFR ESTIMATE (CALCULATED) 53 mL/min/; GLUCOSE 95 mg/dL (70-99); POTASSIUM 4.1 MEQ/L (3.7-5.4); SAMPLE HEMOLYSIS CHECK 0; SAMPLE ICTERIC CHECK 1; SAMPLE LIPEMIA CHECK 0; SODIUM 140 MEQ/L (136-147); UREA NITROGEN (BUN) 28 mg/dL (9-23)
[2016-11-30 07:54] VITALS: BP 124/67
[2016-11-30 16:27] VITALS: BP 126/63
[2016-11-30 20:32] VITALS: BP 139/68
[2016-11-30 23:47] VITALS: BP 144/66
[2016-12-01 03:48] VITALS: BP 140/64
[2016-12-01 08:06] VITALS: BP 170/86
[2016-12-01 08:36] LABS: HEMATOCRIT 25.8 % (36.0-46.0); MCH 30.2 PG (29.0-34.0); MCHC 35.3 G/DL (30.0-36.0); MCV 85.7 FL (83-99); NRBC (%) 0.3 /100 WBC (0-0); PLATELET COUNT 336 K/uL (156-360); RBC DIS.WIDTH-CV 19.5 % (11.8-14.6); RBC DIS.WIDTH-SD 59.4 % (39-53); RED BLOOD COUNT 3.01 M/uL (3.80-5.20); WHITE BLOOD COUNT 14.8 K/uL (4.1-10.2)
[2016-12-01 09:05] LABS: ANION GAP 7 MEQ/L (2-14); CHLORIDE 110 MEQ/L (99-109); GFR ESTIMATE (CALCULATED) 43 mL/min/; GLUCOSE 86 mg/dL (70-99); SAMPLE HEMOLYSIS CHECK 0; SAMPLE ICTERIC CHECK 1; SAMPLE LIPEMIA CHECK 0; SODIUM 139 MEQ/L (136-147); UREA NITROGEN (BUN) 33 mg/dL (9-23)
[2016-12-01 11:12] VITALS: BP 160/93
[2016-12-01 11:40] LABS: DIRECT BILIRUBIN 1.5 mg/dL (0.0-0.3)
[2016-12-01 11:41] LABS: TOTAL BILIRUBIN 4.5 MG/DL (0.0-1.0)
[2016-12-01 16:19] LABS: ABSOLUTE RETICULOCYTE CT. 0.1 M/uL (0.02-0.08)
[2016-12-01 16:24] LABS: RETICULOCYTE COUNT 3.7 % (0.5-1.8)
[2016-12-01 18:42] VITALS: BP 158/76
[2016-12-01 23:27] VITALS: BP 140/87
[2016-12-02 03:41] VITALS: BP 160/76
[2016-12-02 06:04] LABS: HEMATOCRIT 24.5 % (36.0-46.0); IMM.RETIC FRACTION 5.8 % (3-19); MCH 29.4 PG (29.0-34.0); MCHC 34.3 G/DL (30.0-36.0); MCV 85.7 FL (83-99); NRBC (%) 0.4 /100 WBC (0-0); RBC DIS.WIDTH-CV 19.4 % (11.8-14.6); RED BLOOD COUNT 2.86 M/uL (3.80-5.20); RETIC HGB EQUIVALENT 30.5 (28-36); WHITE BLOOD COUNT 12.6 K/uL (4.1-10.2)
[2016-12-02 06:21] LABS: RETICULOCYTE COUNT 2.7 % (0.5-1.8)
[2016-12-02 07:05] LABS: ANION GAP 8 MEQ/L (2-14); CHLORIDE 113 MEQ/L (99-109); GFR ESTIMATE (CALCULATED) 58 mL/min/; GLUCOSE 69 mg/dL (70-99); MEAN PLAT.VOLUME 10.9 uM^3 (9.5-12.4); PLAT.SUFFICIENCY ADEQUATE; PLATELET COUNT 329 K/uL (156-360); POTASSIUM 4.9 MEQ/L (3.7-5.4); SAMPLE HEMOLYSIS CHECK 0; SAMPLE ICTERIC CHECK 1; SAMPLE LIPEMIA CHECK 0; SODIUM 140 MEQ/L (136-147); UREA NITROGEN (BUN) 32 mg/dL (9-23)
[2016-12-02 08:00] VITALS: BP 167/85
[2016-12-02 08:10] LABS: LACTATE DEHYDROGENASE 655 IU/L (20-246)
[2016-12-02 11:55] VITALS: BP 160/83
[2016-12-02 16:07] VITALS: BP 177/86
[2016-12-02 20:51] VITALS: BP 168/90
[2016-12-02 23:36] VITALS: BP 168/114
[2016-12-03 07:01] LABS: IMM.RETIC FRACTION 8.2 % (3-19); RETIC HGB EQUIVALENT 27.7 (28-36); RETICULOCYTE COUNT 1.3 % (0.5-1.8)
[2016-12-03 07:37] VITALS: BP 162/78
[2016-12-03 07:49] LABS: LACTATE DEHYDROGENASE 715 IU/L (20-246)
[2016-12-03 09:40] LABS: ANION GAP 9 MEQ/L (2-14); CHLORIDE 112 MEQ/L (99-109); GFR ESTIMATE (CALCULATED) 46 mL/min/; POTASSIUM 4.7 MEQ/L (3.7-5.4); SODIUM 140 MEQ/L (136-147); UREA NITROGEN (BUN) 35 mg/dL (9-23)
[2016-12-03 09:41] LABS: GLUCOSE 105 mg/dL (70-99)
[2016-12-03 10:50] LABS: HEMATOCRIT 24.8 % (36.0-46.0); MCH 30.5 PG (29.0-34.0); MCHC 34.7 G/DL (30.0-36.0); MCV 87.9 FL (83-99); NRBC (%) 0.3 /100 WBC (0-0); RBC DIS.WIDTH-CV 19.9 % (11.8-14.6); RBC DIS.WIDTH-SD 63.2 % (39-53); RED BLOOD COUNT 2.82 M/uL (3.80-5.20); WHITE BLOOD COUNT 12.6 K/uL (4.1-10.2)
[2016-12-03 11:18] LABS: MEAN PLAT.VOLUME 11.6 uM^3 (9.5-12.4); PLATELET COUNT 342 K/uL (156-360)
[2016-12-03 12:38] VITALS: BP 158/84
[2016-12-03] MEDS ORDERED: MORPHINE SULFAT15 MG PO (13:01)
[2016-12-03 16:52] VITALS: BP 159/93
[2016-12-03 20:15] VITALS: BP 137/105
[2016-12-03 23:55] VITALS: BP 140/77
[2016-12-04] VITALS (7 sets, daily range): BP systolic 132–179; BP diastolic 76–88
[2016-12-04 08:55] LABS: HEMATOCRIT 25.7 % (36.0-46.0); IMM.RETIC FRACTION 7.7 % (3-19); MCH 29.1 PG (29.0-34.0); MCHC 33.9 G/DL (30.0-36.0); NRBC (%) 0.3 /100 WBC (0-0); PLATELET COUNT 329 K/uL (156-360); RBC DIS.WIDTH-CV 19.3 % (11.8-14.6); RBC DIS.WIDTH-SD 59.9 % (39-53); RED BLOOD COUNT 2.99 M/uL (3.80-5.20); RETIC HGB EQUIVALENT 29.6 (28-36); WHITE BLOOD COUNT 11.7 K/uL (4.1-10.2)
[2016-12-04 09:07] LABS: RETICULOCYTE COUNT 0.9 % (0.5-1.8)
[2016-12-04 09:19] LABS: ALKALINE PHOSPHATASE 207 IU/L (3-129); ANION GAP 7 MEQ/L (2-14); CHLORIDE 112 MEQ/L (99-109); DIRECT BILIRUBIN 1.5 mg/dL (0.0-0.3); GFR ESTIMATE (CALCULATED) 53 mL/min/; GLUCOSE 114 mg/dL (70-99); LACTATE DEHYDROGENASE 702 IU/L (20-246); POTASSIUM 4.7 MEQ/L (3.7-5.4); SAMPLE HEMOLYSIS CHECK 0; SAMPLE ICTERIC CHECK 1; SAMPLE LIPEMIA CHECK 0; SODIUM 140 MEQ/L (136-147); TOTAL BILIRUBIN 4.2 MG/DL (0.0-1.0); UREA NITROGEN (BUN) 34 mg/dL (9-23)
[2016-12-05 04:00] VITALS: BP 155/89
[2016-12-05 06:16] LABS: IMM.RETIC FRACTION 3.5 % (3-19); MCH 28.6 PG (29.0-34.0); MCHC 33.5 G/DL (30.0-36.0); MCV 85.5 FL (83-99); NRBC (%) 0.2 /100 WBC (0-0); PLATELET COUNT 293 K/uL (156-360); RBC DIS.WIDTH-SD 58.9 % (39-53); RED BLOOD COUNT 2.69 M/uL (3.80-5.20); RETIC HGB EQUIVALENT 29.7 (28-36); WHITE BLOOD COUNT 12.7 K/uL (4.1-10.2)
[2016-12-05 06:43] LABS: ANION GAP 7 MEQ/L (2-14); CHLORIDE 109 MEQ/L (99-109); GFR ESTIMATE (CALCULATED) 46 mL/min/; GLUCOSE 102 mg/dL (70-99); LACTATE DEHYDROGENASE 644 IU/L (20-246); POTASSIUM 4.8 MEQ/L (3.7-5.4); SAMPLE HEMOLYSIS CHECK 0; SAMPLE ICTERIC CHECK 1; SAMPLE LIPEMIA CHECK 0; SODIUM 138 MEQ/L (136-147); UREA NITROGEN (BUN) 37 mg/dL (9-23)
[2016-12-05 06:46] LABS: RETICULOCYTE COUNT 0.7 % (0.5-1.8)
[2016-12-05 07:30] VITALS: BP 135/83
[2016-12-05] MEDS ORDERED: AMLODIPINE BESY10 MG PO (10:57)
[2016-12-05] MEDS ORDERED: HYDROXYUREA500 MG PO (10:57)
[2016-12-05] MEDS ORDERED: MORPHINE SULFAT15 MG PO (10:59)
[2016-12-05 11:10] VITALS: BP 123/70
== END 2016-12-05 15:15 | disposition home or self-care (01) | DRG 812 ==
LOC: EME 21:27 → 3EAST 11-29 00:32 → EDOF 11-29 00:32 → ENRESERV 11-29 00:36 → EDOF 11-29 07:43 → ENRESERV 11-29 16:26 → 3EAST 11-29 17:18
PROVIDERS: Emergency Medicine; Internal Medicine; Internal Medicine Medical Oncology; Physician Assistant
PROC: 30233N1 Transfusion of Nonautologous Red Blood Cells into Peripheral Vein, Percutaneous Approach (ICD-10-PCS; principal; 2016-11-29)
DX: D57.00 Hb-SS disease with crisis, unspecified (principal); M54.9 Dorsalgia, unspecified; R17 Unspecified jaundice; N17.9 Acute kidney failure, unspecified; I27.2 Other secondary pulmonary hypertension; H54.41 Blindness, right eye, normal vision left eye; I10 Essential (primary) hypertension; D72.829 Elevated white blood cell count, unspecified; H33.21 Serous retinal detachment, right eye; R07.9 Chest pain, unspecified; R79.89 Other specified abnormal findings of blood chemistry; R11.0 Nausea; M79.601 Pain in right arm
CPT/HCPCS: 71020; 80048; 80053; 80076; 81003; 82247; 82248; 83605; 83615; 83690; 84484; 84702; 85014; 85018; 85027; 85045; 85610; 85730; 86900; 86901; 86920; 87040; 87086; 93005; 94010; 99281; 99285; J0696; J1940; J2270; J2405; J2765; J3480; J7030; J7050; P9016; P9040

== ENCOUNTER 2017-02-10 12:27 | Inpatient (IN) | payer OTHER ==
[2017-02-10] VITALS (9 sets, daily range): BP systolic 111–135; BP diastolic 49–75
[~2017-02-10] VITALS: Ht 165.1 cm; Wt 60.9 kg
[~2017-02-10 12:27] MED LIST changes: +AMLODIPINE BESY10 MG PO
[2017-02-10 14:40] LABS: EOSINOPHIL (%) 4.4 % (0-5); IMM.RETIC FRACTION 33.9 % (3-19); IMMATURE GRANULOCYTE (%) 1.4 % (0.0-0.7); IMMATURE GRANULOCYTE COUNT 0.3 K/uL; INSTRUMENT ABS NEUTROPHIL CT 11.9 K/uL; LYMPHOCYTE COUNT 5.8 K/uL (1.0-2.8); MCH 29.7 PG (29.0-34.0); MCHC 36.7 G/DL (30.0-36.0); MCV 81.1 FL (83-99); MEAN PLAT.VOLUME 11.1 uM^3 (9.5-12.4); MONOCYTE (%) 14.5 % (3-12); MONOCYTE COUNT 3.2 K/uL (0-0.8); NEUTROPHIL (%) 53.4 % (45-76); NEUTROPHIL COUNT 11.9 K/uL (1.8-6.4); NRBC (%) 1.1 /100 WBC (0-0); PLATELET COUNT 416 K/uL (156-360); RBC DIS.WIDTH-CV 23.7 % (11.8-14.6); RBC DIS.WIDTH-SD 59.9 % (39-53); RED BLOOD COUNT 1.48 M/uL (3.80-5.20); RETIC HGB EQUIVALENT 37.8 (28-36); RETICULOCYTE COUNT > 18.0 % (0.5-1.8); WHITE BLOOD COUNT 22.3 K/uL (4.1-10.2)
[2017-02-10 14:46] LABS: CHLORIDE 109 mEq/L (99-109); SODIUM 138 mEq/L (136-147)
[2017-02-10 14:48] LABS: GLUCOSE 109 mg/dL (70-99)
[2017-02-10 14:49] LABS: ANION GAP 13 MEQ/L (2-14)
[2017-02-10 14:52] LABS: GFR ESTIMATE (CALCULATED) 46 mL/min/
[2017-02-10 14:53] LABS: UREA NITROGEN (BUN) 31 mg/dL (9-23)
[2017-02-10 16:15] LABS: ADD MIUA? YES; BILIRUBIN NEGATIVE; BLOOD MODERATE; COLOR YELLOW ((YELLOW)); GLUCOSE (STRIP) NEGATIVE; KETONES NEGATIVE; LEUKOCYTES NEGATIVE; NITRITE NEGATIVE; PROTEIN (STRIP) 100; SPECIFIC GRAVITY 1.009 (1.000-1.030); UROBILINOGEN 0.2 MG/DL (0.2-1.0)
[2017-02-10 16:32] LABS: BACTERIA RARE /HPF; EPITHELIAL CELLS RARE /HPF; MUCUS NONE SEEN /LPF; RED BLOOD CELLS RARE /HPF (0-5); WHITE BLOOD CELLS NONE SEEN /HPF (0-5)
[2017-02-11] VITALS (13 sets, daily range): BP systolic 108–177; BP diastolic 57–83
[2017-02-11 09:41] LABS: HEMATOCRIT 20.9 % (36.0-46.0); IMM.RETIC FRACTION 25.6 % (3-19); MCH 30.5 PG (29.0-34.0); MCHC 36.4 G/DL (30.0-36.0); MCV 83.9 FL (83-99); NRBC (%) 1.3 /100 WBC (0-0); RBC DIS.WIDTH-CV 18.6 % (11.8-14.6); RBC DIS.WIDTH-SD 53.5 % (39-53); RETIC HGB EQUIVALENT 29.4 (28-36); WHITE BLOOD COUNT 18.2 K/uL (4.1-10.2)
[2017-02-11 09:57] LABS: RED BLOOD COUNT 2.49 M/uL (3.80-5.20); RETICULOCYTE COUNT 11.2 % (0.5-1.8)
[2017-02-11 10:30] LABS: MEAN PLAT.VOLUME 11.1 uM^3 (9.5-12.4); PLATELET COUNT 333 K/uL (156-360)
[2017-02-12 03:40] VITALS: BP 132/75
[2017-02-12 07:11] VITALS: BP 121/57
[2017-02-12 09:22] LABS: HEMATOCRIT 24.6 % (36.0-46.0); MCH 29.6 PG (29.0-34.0); MCV 84.5 FL (83-99); NRBC (%) 1.1 /100 WBC (0-0); RBC DIS.WIDTH-SD 58.8 % (39-53); RED BLOOD COUNT 2.91 M/uL (3.80-5.20)
[2017-02-12 09:50] LABS: ALKALINE PHOSPHATASE 239 IU/L (3-129); ANION GAP 9 MEQ/L (2-14); CHLORIDE 111 MEQ/L (99-109); GFR ESTIMATE (CALCULATED) 46 mL/min/; GLUCOSE 90 mg/dL (70-99); LACTATE DEHYDROGENASE 853 IU/L (20-246); POTASSIUM 4.6 MEQ/L (3.7-5.4); SAMPLE HEMOLYSIS CHECK 1; SAMPLE ICTERIC CHECK 2; SAMPLE LIPEMIA CHECK 0; SODIUM 137 MEQ/L (136-147); TOTAL BILIRUBIN 7.6 MG/DL (0.0-1.0); UREA NITROGEN (BUN) 33 mg/dL (9-23)
[2017-02-12 09:54] LABS: MEAN PLAT.VOLUME 10.9 uM^3 (9.5-12.4); PLATELET COUNT 321 K/uL (156-360)
[2017-02-12 11:29] LABS: IMM.RETIC FRACTION 27.2 % (3-19); RETIC HGB EQUIVALENT 28.5 (28-36)
[2017-02-12 11:33] LABS: RETICULOCYTE COUNT 8.2 % (0.5-1.8)
[2017-02-12 12:22] VITALS: BP 111/58
[2017-02-13 00:02] VITALS: BP 110/62
[2017-02-13 07:23] VITALS: BP 141/70
[2017-02-13 23:55] VITALS: BP 135/75
[2017-02-14 06:22] LABS: HEMATOCRIT 21.6 % (36.0-46.0); MCH 28.2 PG (29.0-34.0); MCHC 33.3 G/DL (30.0-36.0); MCV 84.7 FL (83-99); MEAN PLAT.VOLUME 10.7 uM^3 (9.5-12.4); NRBC (%) 0.7 /100 WBC (0-0); PLATELET COUNT 281 K/uL (156-360); RBC DIS.WIDTH-CV 21.1 % (11.8-14.6); RBC DIS.WIDTH-SD 64.2 % (39-53); RED BLOOD COUNT 2.55 M/uL (3.80-5.20); WHITE BLOOD COUNT 14.7 K/uL (4.1-10.2)
[2017-02-14 08:11] VITALS: BP 134/74
[2017-02-14 08:17] VITALS: BP 121/70
[2017-02-14 17:29] VITALS: BP 145/84
[2017-02-14 22:26] VITALS: BP 115/83
[2017-02-15 06:20] LABS: HEMATOCRIT 22.7 % (36.0-46.0); MCH 28.8 PG (29.0-34.0); MCHC 34.4 G/DL (30.0-36.0); MCV 83.8 FL (83-99); NRBC (%) 0.6 /100 WBC (0-0); RBC DIS.WIDTH-CV 21.6 % (11.8-14.6); RBC DIS.WIDTH-SD 64.8 % (39-53); RED BLOOD COUNT 2.71 M/uL (3.80-5.20); WHITE BLOOD COUNT 14.3 K/uL (4.1-10.2)
[2017-02-15 07:09] LABS: MEAN PLAT.VOLUME 11.4 uM^3 (9.5-12.4); PLAT.SUFFICIENCY ADEQUATE; PLATELET COUNT 295 K/uL (156-360)
[2017-02-15 08:13] VITALS: BP 137/86
[2017-02-15 15:31] LABS: ABSOLUTE RETICULOCYTE CT. 0.1 M/uL (0.02-0.08); IMM.RETIC FRACTION 8.9 % (3-19); RETIC HGB EQUIVALENT 29.7 (28-36)
[2017-02-15 15:44] LABS: ANION GAP 7 MEQ/L (2-14); CHLORIDE 110 MEQ/L (99-109); POTASSIUM 5.5 MEQ/L (3.7-5.4); SAMPLE HEMOLYSIS CHECK 0; SAMPLE ICTERIC CHECK 2; SAMPLE LIPEMIA CHECK 1; SODIUM 138 MEQ/L (136-147); TOTAL BILIRUBIN 6.6 MG/DL (0.0-1.0)
[2017-02-15 15:53] LABS: ALKALINE PHOSPHATASE 230 IU/L (3-129); GFR ESTIMATE (CALCULATED) 37 mL/min/; GLUCOSE 94 mg/dL (70-99); LACTATE DEHYDROGENASE 794 IU/L (20-246); UREA NITROGEN (BUN) 43 mg/dL (9-23)
[2017-02-15 15:56] VITALS: BP 135/72
[2017-02-15 16:42] LABS: RETICULOCYTE COUNT 1.9 % (0.5-1.8)
[2017-02-15 20:13] VITALS: BP 126/69
[2017-02-15 21:12] VITALS: BP 134/75
[2017-02-15 21:57] VITALS: BP 132/72
[2017-02-15 22:58] VITALS: BP 134/71
[2017-02-16 07:39] LABS: BASOPHIL COUNT 0.1 K/uL (0-0.1); EOSINOPHIL (%) 8.3 % (0-5); HEMATOCRIT 23.8 % (36.0-46.0); IMM.RETIC FRACTION 9.9 % (3-19); IMMATURE GRANULOCYTE (%) 0.6 % (0.0-0.7); IMMATURE GRANULOCYTE COUNT 0.1 K/uL; INSTRUMENT ABS NEUTROPHIL CT 5.9 K/uL; MCH 29.8 PG (29.0-34.0); MCHC 34.5 G/DL (30.0-36.0); MCV 86.5 FL (83-99); MEAN PLAT.VOLUME 11.5 uM^3 (9.5-12.4); MONOCYTE (%) 11.9 % (3-12); MONOCYTE COUNT 1.5 K/uL (0-0.8); NEUTROPHIL (%) 46.6 % (45-76); NEUTROPHIL COUNT 5.9 K/uL (1.8-6.4); NRBC (%) 0.2 /100 WBC (0-0); PLATELET COUNT 242 K/uL (156-360); RBC DIS.WIDTH-CV 20.7 % (11.8-14.6); RBC DIS.WIDTH-SD 64.1 % (39-53); RED BLOOD COUNT 2.75 M/uL (3.80-5.20); RETIC HGB EQUIVALENT 30.4 (28-36); WHITE BLOOD COUNT 12.6 K/uL (4.1-10.2)
[2017-02-16 07:47] LABS: RETICULOCYTE COUNT 1.3 % (0.5-1.8)
[2017-02-16 08:05] LABS: ALKALINE PHOSPHATASE 207 IU/L (3-129); ANION GAP 10 MEQ/L (2-14); CHLORIDE 112 MEQ/L (99-109); GFR ESTIMATE (CALCULATED) 46 mL/min/; GLUCOSE 98 mg/dL (70-99); POTASSIUM 4.9 MEQ/L (3.7-5.4); SAMPLE HEMOLYSIS CHECK 0; SAMPLE ICTERIC CHECK 1; SAMPLE LIPEMIA CHECK 0; SODIUM 141 MEQ/L (136-147); UREA NITROGEN (BUN) 40 mg/dL (9-23)
[2017-02-16 08:10] LABS: TOTAL BILIRUBIN 5.2 MG/DL (0.0-1.0)
[2017-02-16 08:21] VITALS: BP 143/78
[2017-02-16 17:16] VITALS: BP 138/74
[2017-02-16 23:03] VITALS: BP 167/87
[2017-02-17 06:59] LABS: BASOPHIL COUNT 0.1 K/uL (0-0.1); EOSINOPHIL (%) 8.2 % (0-5); HEMATOCRIT 23.1 % (36.0-46.0); IMM.RETIC FRACTION 10.8 % (3-19); IMMATURE GRANULOCYTE (%) 0.7 % (0.0-0.7); IMMATURE GRANULOCYTE COUNT 0.1 K/uL; INSTRUMENT ABS NEUTROPHIL CT 5.2 K/uL; LYMPHOCYTE COUNT 4.2 K/uL (1.0-2.8); MCH 29.7 PG (29.0-34.0); MCHC 34.2 G/DL (30.0-36.0); MCV 86.8 FL (83-99); MEAN PLAT.VOLUME 11.8 uM^3 (9.5-12.4); MONOCYTE COUNT 1.3 K/uL (0-0.8); NEUTROPHIL COUNT 5.2 K/uL (1.8-6.4); NRBC (%) 0.3 /100 WBC (0-0); PLATELET COUNT 237 K/uL (156-360); RBC DIS.WIDTH-CV 20.8 % (11.8-14.6); RBC DIS.WIDTH-SD 65.5 % (39-53); RED BLOOD COUNT 2.66 M/uL (3.80-5.20); RETIC HGB EQUIVALENT 31.3 (28-36); WHITE BLOOD COUNT 11.7 K/uL (4.1-10.2)
[2017-02-17 07:00] LABS: RETICULOCYTE COUNT 1.1 % (0.5-1.8)
[2017-02-17 07:33] LABS: ALKALINE PHOSPHATASE 182 IU/L (3-129); ANION GAP 7 MEQ/L (2-14); CHLORIDE 111 MEQ/L (99-109); GFR ESTIMATE (CALCULATED) 46 mL/min/; GLUCOSE 125 mg/dL (70-99); POTASSIUM 4.3 MEQ/L (3.7-5.4); SAMPLE HEMOLYSIS CHECK 0; SAMPLE ICTERIC CHECK 1; SAMPLE LIPEMIA CHECK 0; SODIUM 139 MEQ/L (136-147); UREA NITROGEN (BUN) 34 mg/dL (9-23)
[2017-02-17 07:48] VITALS: BP 133/64
[2017-02-17 15:45] VITALS: BP 152/82
[2017-02-17] MEDS ORDERED: MORPHINE SULFAT15 MG PO (16:19)
[2017-02-17 23:36] VITALS: BP 147/72
[2017-02-18 05:32] LABS: BASOPHIL COUNT 0.1 K/uL (0-0.1); EOSINOPHIL (%) 6.8 % (0-5); EOSINOPHIL COUNT 0.9 K/uL (0-0.3); HEMATOCRIT 23.6 % (36.0-46.0); IMM.RETIC FRACTION 13.8 % (3-19); IMMATURE GRANULOCYTE (%) 0.5 % (0.0-0.7); IMMATURE GRANULOCYTE COUNT 0.1 K/uL; INSTRUMENT ABS NEUTROPHIL CT 6.3 K/uL; LYMPHOCYTE COUNT 4.9 K/uL (1.0-2.8); MCH 28.6 PG (29.0-34.0); MCHC 33.1 G/DL (30.0-36.0); MCV 86.4 FL (83-99); MEAN PLAT.VOLUME 11.9 uM^3 (9.5-12.4); MONOCYTE (%) 10.4 % (3-12); MONOCYTE COUNT 1.4 K/uL (0-0.8); NEUTROPHIL (%) 45.8 % (45-76); NEUTROPHIL COUNT 6.3 K/uL (1.8-6.4); NRBC (%) 0.1 /100 WBC (0-0); PLATELET COUNT 237 K/uL (156-360); RBC DIS.WIDTH-CV 20.3 % (11.8-14.6); RBC DIS.WIDTH-SD 63.6 % (39-53); RED BLOOD COUNT 2.73 M/uL (3.80-5.20); RETIC HGB EQUIVALENT 32.5 (28-36); WHITE BLOOD COUNT 13.7 K/uL (4.1-10.2)
[2017-02-18 06:09] LABS: ALKALINE PHOSPHATASE 226 IU/L (3-129); ANION GAP 7 MEQ/L (2-14); CHLORIDE 110 MEQ/L (99-109); GFR ESTIMATE (CALCULATED) 46 mL/min/; SAMPLE HEMOLYSIS CHECK 0; SAMPLE ICTERIC CHECK 1; SAMPLE LIPEMIA CHECK 0; SODIUM 139 MEQ/L (136-147); TOTAL BILIRUBIN 3.9 MG/DL (0.0-1.0); UREA NITROGEN (BUN) 35 mg/dL (9-23)
[2017-02-18 06:12] LABS: RETICULOCYTE COUNT 0.9 % (0.5-1.8)
[2017-02-18 06:15] LABS: GLUCOSE 81 mg/dL (70-99)
[2017-02-18 07:07] VITALS: BP 140/80
[2017-02-18 15:08] VITALS: BP 126/79
[2017-02-18 23:23] VITALS: BP 171/91
[2017-02-19 06:55] LABS: BASOPHIL COUNT 0.1 K/uL (0-0.1); EOSINOPHIL (%) 8.4 % (0-5); HEMATOCRIT 21.8 % (36.0-46.0); IMM.RETIC FRACTION 10.5 % (3-19); IMMATURE GRANULOCYTE (%) 0.8 % (0.0-0.7); IMMATURE GRANULOCYTE COUNT 0.1 K/uL; INSTRUMENT ABS NEUTROPHIL CT 5.8 K/uL; LYMPHOCYTE COUNT 4.2 K/uL (1.0-2.8); MCHC 34.4 G/DL (30.0-36.0); MCV 87.2 FL (83-99); MEAN PLAT.VOLUME 11.9 uM^3 (9.5-12.4); MONOCYTE (%) 9.1 % (3-12); MONOCYTE COUNT 1.1 K/uL (0-0.8); NEUTROPHIL (%) 47.5 % (45-76); NEUTROPHIL COUNT 5.8 K/uL (1.8-6.4); PLATELET COUNT 212 K/uL (156-360); RBC DIS.WIDTH-CV 20.6 % (11.8-14.6); RBC DIS.WIDTH-SD 64.7 % (39-53); RETIC HGB EQUIVALENT 32.9 (28-36); RETICULOCYTE COUNT 0.8 % (0.5-1.8); WHITE BLOOD COUNT 12.3 K/uL (4.1-10.2)
[2017-02-19 07:04] VITALS: BP 144/76
[2017-02-19 07:21] LABS: ALKALINE PHOSPHATASE 205 IU/L (3-129); ANION GAP 8 MEQ/L (2-14); CHLORIDE 106 MEQ/L (99-109); GFR ESTIMATE (CALCULATED) 53 mL/min/; GLUCOSE 86 mg/dL (70-99); POTASSIUM 4.7 MEQ/L (3.7-5.4); SAMPLE HEMOLYSIS CHECK 0; SAMPLE ICTERIC CHECK 0; SAMPLE LIPEMIA CHECK 0; SODIUM 136 MEQ/L (136-147); TOTAL BILIRUBIN 3.4 MG/DL (0.0-1.0); UREA NITROGEN (BUN) 33 mg/dL (9-23)
[2017-02-19] MEDS ORDERED: DOCUSATE SODIU100 MG PO (09:20)
== END 2017-02-19 13:23 | disposition home or self-care (01) | DRG 812 ==
LOC: EME 12:27 → 5SOUTH 15:30 → EDOF 15:30 → ENRESERV 15:33 → 5SOUTH 17:17 → ENPENDDIS 02-19 → 5SOUTH 02-19 13:23
PROVIDERS: Hospitalist; Internal Medicine; Internal Medicine Medical Oncology; Nurse Practitioner Adult Health; Physician Assistant
PROC: 30233N1 Transfusion of Nonautologous Red Blood Cells into Peripheral Vein, Percutaneous Approach (ICD-10-PCS; principal; 2017-02-10)
DX: D57.00 Hb-SS disease with crisis, unspecified (principal); E87.5 Hyperkalemia; N17.9 Acute kidney failure, unspecified; D72.829 Elevated white blood cell count, unspecified; R17 Unspecified jaundice; I12.9 Hypertensive chronic kidney disease with stage 1 through stage 4 chronic kidney disease, or unspecified chronic kidney disease; N18.3 Chronic kidney disease, stage 3 (moderate); I27.20 Pulmonary hypertension, unspecified; Z80.0 Family history of malignant neoplasm of digestive organs; Z83.3 Family history of diabetes mellitus
CPT/HCPCS: 71020; 80048; 80053; 81003; 83615; 85025; 85027; 85045; 86850; 86900; 86901; 86920; 94799; 99281; 99284; J1200; J1644; J2270; J2405; J7030; P9016; P9040

== ENCOUNTER 2017-04-23 12:33 | Inpatient (IN) | payer OTHER ==
[~2017-04-23] VITALS: Ht 165.1 cm; Wt 58.4 kg
[2017-04-23] VITALS (8 sets, daily range): BP systolic 120–147; BP diastolic 51–79
[~2017-04-23 12:33] MED LIST changes: +DOCUSATE SODIU100 MG PO
[2017-04-23 16:09] LABS: HEMATOCRIT 11.7 % (36.0-46.0); MCH 29.2 PG (29.0-34.0); MCHC 35.9 G/DL (30.0-36.0); MCV 81.3 FL (83-99); NRBC (%) 0.4 /100 WBC (0-0); PLATELET COUNT 390 K/uL (156-360); RBC DIS.WIDTH-CV 20.7 % (11.8-14.6); RBC DIS.WIDTH-SD 55.3 % (39-53); RED BLOOD COUNT 1.44 M/uL (3.80-5.20); WHITE BLOOD COUNT 23.5 K/uL (4.1-10.2)
[2017-04-23 16:10] LABS: HEMOGLOBIN 4.2 G/DL (11.9-15.5)
[2017-04-23 16:13] LABS: ABSOLUTE RETICULOCYTE CT. 0.2 M/uL (0.02-0.08); ALBUMIN 3.7 g/dL (3.2-4.8); CHLORIDE 109 mEq/L (99-109); IMM.RETIC FRACTION 29.1 % (3-19); POTASSIUM 4.3 mEq/L (3.7-5.4); RETIC HGB EQUIVALENT 33.3 (28-36); RETICULOCYTE COUNT 14.5 % (0.5-1.8); SODIUM 135 mEq/L (136-147)
[2017-04-23 16:16] LABS: GLUCOSE 96 mg/dL (70-99); TOTAL PROTEIN 7.8 g/dL (6.4-8.3)
[2017-04-23 16:18] LABS: TOTAL BILIRUBIN 4.8 mg/dL (0.0-1.0)
[2017-04-23 16:19] LABS: ALKALINE PHOSPHATASE 306 IU/L (3-129); CREATININE 1.5 mg/dL (0.6-1.3); GFR ESTIMATE (CALCULATED) 49 mL/min/
[2017-04-23 16:20] LABS: UREA NITROGEN (BUN) 34 mg/dL (9-23)
[2017-04-23 16:21] LABS: AST (GOT) 113 IU/L (2-34)
[2017-04-23 16:22] LABS: ALT (GPT) 59 IU/L (3-49)
[2017-04-23 16:26] LABS: TROP-I INTERPRETATION NEGATIVE; TROPONIN-I < 0.01 ng/mL (0.0-0.30)
[2017-04-23 16:28] LABS: QUANTITATIVE HCG < 4.0 MIU/ML
[2017-04-23] MEDS ORDERED: AMLODIPINE BESY10 MG PO (17:02)
[2017-04-23 17:33] LABS: ABS NEUTROPHIL COUNT 15.4; ANISOCYTOSIS 3+; ATYPICAL LYMPHOCYTE 1.9 %; BAND NEUTROPHILS 0.9 % (0-8.0); BASOPHILS 0.5 %; EOSINOPHIL ABS CT 1.1; EOSINOPHILS 4.6 % (0-5.0); HYPOCHROMASIA 3+; LYMPHOCYTES 20.9 % (15.0-45.0); MACROCYTES 2+; MICROCYTOSIS 2+; MONOCYTES 6.5 % (0-9.0); NUCLEATED RBC'S 0.5; OVALOCYTES 1+; PLAT.SUFFICIENCY ADEQUATE; POIKILOCYTOSIS 3+; POLYCHROMASIA 2+; SEG.NEUTROPHILS 64.7 % (46.0-76.0); SMUDGE CELLS 9.3; TARGET CELLS 1+
[2017-04-23 19:33] LABS: APPEARANCE SL.HAZY ((CLEAR)); BILIRUBIN NEGATIVE; BLOOD LARGE; COLOR YELLOW ((YELLOW)); GLUCOSE (STRIP) NEGATIVE; KETONES NEGATIVE; LEUKOCYTES SMALL; NITRITE NEGATIVE; PROTEIN (STRIP) 30; SPECIFIC GRAVITY 1.008 (1.000-1.030); UROBILINOGEN 0.2 MG/DL (0.2-1.0)
[2017-04-23 19:43] LABS: BACTERIA RARE /HPF; EPITHELIAL CELLS RARE /HPF; MUCUS TRACE /LPF; WHITE BLOOD CELLS 20-30 /HPF (0-5)
[2017-04-24] VITALS (9 sets, daily range): BP systolic 113–146; BP diastolic 56–81
[2017-04-24 07:27] LABS: HEMATOCRIT 19.3 % (36.0-46.0); MCH 27.9 PG (29.0-34.0); MCHC 33.2 G/DL (30.0-36.0); MCV 84.3 FL (83-99); NRBC (%) 0.5 /100 WBC (0-0); RBC DIS.WIDTH-CV 19.7 % (11.8-14.6); RBC DIS.WIDTH-SD 58.3 % (39-53); WHITE BLOOD COUNT 22.1 K/uL (4.1-10.2)
[2017-04-24 07:28] LABS: HEMOGLOBIN 6.4 G/DL (11.9-15.5); RED BLOOD COUNT 2.29 M/uL (3.80-5.20)
[2017-04-24 07:42] LABS: ALBUMIN 3.6 G/DL (3.2-4.8); ALKALINE PHOSPHATASE 270 IU/L (3-129); ALT (GPT) 52 IU/L (3-49); AST (GOT) 104 IU/L (2-34); CHLORIDE 109 MEQ/L (99-109); CREATININE 1.9 MG/DL (0.6-1.3); DIRECT BILIRUBIN 2.1 mg/dL (0.0-0.3); GFR ESTIMATE (CALCULATED) 37 mL/min/; GLUCOSE 103 mg/dL (70-99); POTASSIUM 4.7 MEQ/L (3.7-5.4); SODIUM 140 MEQ/L (136-147); TOTAL BILIRUBIN 5.3 MG/DL (0.0-1.0); TOTAL PROTEIN 7.1 G/DL (6.4-8.3); UREA NITROGEN (BUN) 33 mg/dL (9-23)
[2017-04-24 07:46] LABS: PLAT.SUFFICIENCY ADEQUATE; PLATELET COUNT 351 K/uL (156-360)
[2017-04-24 16:44] LABS: UR CREATININE CONCENTRATION 46.5 MG/DL
[2017-04-24 17:24] LABS: LACTATE DEHYDROGENASE 690 IU/L (20-246)
[2017-04-24 18:49] LABS: HEMATOCRIT 29.6 % (36.0-46.0); HEMOGLOBIN 9.8 G/DL (11.9-15.5); MCV 85.1 FL (83-99)
[2017-04-25 03:27] VITALS: BP 97/53
[2017-04-25 06:30] LABS: BASOPHIL (%) 0.3 % (0-1); BASOPHIL COUNT 0.1 K/uL (0-0.1); EOSINOPHIL (%) 3.6 % (0-5); EOSINOPHIL COUNT 0.9 K/uL (0-0.3); HEMATOCRIT 26.1 % (36.0-46.0); HEMOGLOBIN 8.5 G/DL (11.9-15.5); IMM.RETIC FRACTION 23.3 % (3-19); IMMATURE GRANULOCYTE (%) 0.8 % (0.0-0.7); LYMPHOCYTE (%) 23.9 % (15-42); LYMPHOCYTE COUNT 5.6 K/uL (1.0-2.8); MCH 27.8 PG (29.0-34.0); MCHC 32.6 G/DL (30.0-36.0); MCV 85.3 FL (83-99); MONOCYTE (%) 14.2 % (3-12); MONOCYTE COUNT 3.3 K/uL (0-0.8); NEUTROPHIL (%) 57.2 % (45-76); NEUTROPHIL COUNT 13.4 K/uL (1.8-6.4); NRBC (%) 0.3 /100 WBC (0-0); PLATELET COUNT 312 K/uL (156-360); RBC DIS.WIDTH-CV 18.3 % (11.8-14.6); RBC DIS.WIDTH-SD 55.8 % (39-53); RETIC HGB EQUIVALENT 27.7 (28-36); WHITE BLOOD COUNT 23.4 K/uL (4.1-10.2)
[2017-04-25 06:31] LABS: RED BLOOD COUNT 3.06 M/uL (3.80-5.20); RETICULOCYTE COUNT 4.9 % (0.5-1.8)
[2017-04-25 06:54] LABS: CHLORIDE 112 MEQ/L (99-109); CREATININE 1.9 MG/DL (0.6-1.3); GFR ESTIMATE (CALCULATED) 37 mL/min/; GLUCOSE 94 mg/dL (70-99); LACTATE DEHYDROGENASE 729 IU/L (20-246); SODIUM 142 MEQ/L (136-147); UREA NITROGEN (BUN) 35 mg/dL (9-23)
[2017-04-25 07:29] VITALS: BP 137/60
[2017-04-25 11:29] VITALS: BP 122/68
[2017-04-25 16:10] VITALS: BP 119/78
[2017-04-25 20:31] VITALS: BP 107/57
[2017-04-25 22:54] LABS: BASOPHIL (%) 0.4 % (0-1); BASOPHIL COUNT 0.1 K/uL (0-0.1); EOSINOPHIL (%) 6.3 % (0-5); EOSINOPHIL COUNT 1.2 K/uL (0-0.3); HEMATOCRIT 25.5 % (36.0-46.0); HEMOGLOBIN 8.5 G/DL (11.9-15.5); IMMATURE GRANULOCYTE (%) 0.7 % (0.0-0.7); LYMPHOCYTE (%) 25.8 % (15-42); MCH 28.2 PG (29.0-34.0); MCHC 33.3 G/DL (30.0-36.0); MCV 84.7 FL (83-99); MONOCYTE (%) 13.9 % (3-12); MONOCYTE COUNT 2.7 K/uL (0-0.8); NEUTROPHIL (%) 52.9 % (45-76); NEUTROPHIL COUNT 10.2 K/uL (1.8-6.4); NRBC (%) 0.4 /100 WBC (0-0); PLATELET COUNT 290 K/uL (156-360); RBC DIS.WIDTH-CV 18.9 % (11.8-14.6); RBC DIS.WIDTH-SD 58.1 % (39-53); RED BLOOD COUNT 3.01 M/uL (3.80-5.20); WHITE BLOOD COUNT 19.3 K/uL (4.1-10.2)
[2017-04-25 23:10] LABS: ALBUMIN 3.7 G/DL (3.2-4.8); ALKALINE PHOSPHATASE 247 IU/L (3-129); ALT (GPT) 51 IU/L (3-49); AST (GOT) 99 IU/L (2-34); CHLORIDE 110 MEQ/L (99-109); GFR ESTIMATE (CALCULATED) 35 mL/min/; GLUCOSE 92 mg/dL (70-99); POTASSIUM 4.9 MEQ/L (3.7-5.4); SODIUM 138 MEQ/L (136-147); TOTAL BILIRUBIN 6.2 MG/DL (0.0-1.0); UREA NITROGEN (BUN) 38 mg/dL (9-23)
[2017-04-26] VITALS: BP 132/59
[2017-04-26 01:00] VITALS: BP 131/80
== END 2017-04-26 01:46 | disposition short-term general hospital (02) | DRG 811 ==
LOC: EME 12:33 → EDOF 19:29 → 5EAST 19:29 → ENRESERV 19:31 → 5EAST 21:54 → ENRESERV 04-25 19:56 → 4WEST 04-25 23:41
PROVIDERS: Hospitalist; Internal Medicine; Internal Medicine Medical Oncology; Nurse Practitioner Family; Student in an Organized Health Care Education/Training Program
PROC: 30233N1 Transfusion of Nonautologous Red Blood Cells into Peripheral Vein, Percutaneous Approach (ICD-10-PCS; principal; 2017-04-23)
DX: D57.00 Hb-SS disease with crisis, unspecified (principal); J18.9 Pneumonia, unspecified organism; R78.81 Bacteremia; N17.9 Acute kidney failure, unspecified; E87.1 Hypo-osmolality and hyponatremia; D69.6 Thrombocytopenia, unspecified; R74.0 Nonspecific elevation of levels of transaminase and lactic acid dehydrogenase [LDH]; E86.0 Dehydration; E86.1 Hypovolemia; I12.9 Hypertensive chronic kidney disease with stage 1 through stage 4 chronic kidney disease, or unspecified chronic kidney disease; N18.3 Chronic kidney disease, stage 3 (moderate); N39.0 Urinary tract infection, site not specified; I27.20 Pulmonary hypertension, unspecified; G89.29 Other chronic pain; R79.89 Other specified abnormal findings of blood chemistry; H54.61 Unqualified visual loss, right eye, normal vision left eye
CPT/HCPCS: 70450; 71045; 71046; 76770; 80048; 80053; 80076; 81003; 82306; 82436; 82570; 83615; 84156; 84300; 84484; 84702; 85014; 85018; 85025; 85025 91; 85027; 85046; 85379; 86850; 86900; 86901; 86920; 87040; 87641; 87801; 93005; 99281; 99285; J0696; J1200; J1644; J2270; J7030; P9016

== ENCOUNTER 2017-07-01 03:14 | Inpatient (IN) | payer OTHER ==
[2017-07-01] VITALS (11 sets, daily range): BP systolic 104–154; BP diastolic 53–83
[~2017-07-01] VITALS: Ht 162.6 cm; Wt 58.0 kg
[2017-07-01 08:38] LABS: IMM.RETIC FRACTION 33.8 % (3-19)
[2017-07-01 08:42] LABS: BASOPHIL (%) 0.2 % (0-1); EOSINOPHIL (%) 8.9 % (0-5); EOSINOPHIL COUNT 2.1 K/uL (0-0.3); HEMATOCRIT 12.6 % (36.0-46.0); IMMATURE GRANULOCYTE (%) 1.1 % (0.0-0.7); LYMPHOCYTE (%) 29.7 % (15-42); MCH 27.9 PG (29.0-34.0); MCHC 36.5 G/DL (30.0-36.0); MCV 76.4 FL (83-99); MONOCYTE (%) 14.5 % (3-12); MONOCYTE COUNT 3.4 K/uL (0-0.8); NEUTROPHIL (%) 45.6 % (45-76); NEUTROPHIL COUNT 10.7 K/uL (1.8-6.4); NRBC (%) 0.4 /100 WBC (0-0); PLATELET COUNT 440 K/uL (156-360); RBC DIS.WIDTH-CV 21.1 % (11.8-14.6); RBC DIS.WIDTH-SD 49.1 % (39-53); RED BLOOD COUNT 1.65 M/uL (3.80-5.20); WHITE BLOOD COUNT 23.4 K/uL (4.1-10.2)
[2017-07-01 08:47] LABS: HEMOGLOBIN 4.6 G/DL (11.9-15.5)
[2017-07-01 08:51] LABS: CHLORIDE 106 mEq/L (99-109); INTER. NORMALIZED RATIO 1.4; POTASSIUM 4.5 mEq/L (3.7-5.4); SODIUM 136 mEq/L (136-147)
[2017-07-01 08:53] LABS: GLUCOSE 105 mg/dL (70-99); PTT 38.7 SEC (25-37)
[2017-07-01 08:57] LABS: CREATININE 1.8 mg/dL (0.6-1.3); GFR ESTIMATE (CALCULATED) 40 mL/min/
[2017-07-01 08:58] LABS: UREA NITROGEN (BUN) 36 mg/dL (9-23)
[2017-07-01 09:02] LABS: ALBUMIN 3.7 g/dL (3.2-4.8)
[2017-07-01 09:05] LABS: TOTAL PROTEIN 8.3 g/dL (6.4-8.3)
[2017-07-01 09:06] LABS: TOTAL BILIRUBIN 4.6 mg/dL (0.0-1.0)
[2017-07-01 09:07] LABS: ALKALINE PHOSPHATASE 278 IU/L (3-129)
[2017-07-01 09:10] LABS: AST (GOT) 113 IU/L (2-34); DIRECT BILIRUBIN 1.9 mg/dL (0.0-0.3)
[2017-07-01 09:11] LABS: ALT (GPT) 51 IU/L (3-49)
[2017-07-01] MEDS ORDERED: DILAUDID4 MG PO (10:18)
[2017-07-01 11:49] LABS: APPEARANCE CLEAR ((CLEAR)); BILIRUBIN NEGATIVE; BLOOD MODERATE; COLOR YELLOW ((YELLOW)); GLUCOSE (STRIP) NEGATIVE; KETONES NEGATIVE; LEUKOCYTES NEGATIVE; NITRITE NEGATIVE; PROTEIN (STRIP) 100; SPECIFIC GRAVITY 1.009 (1.000-1.030); UROBILINOGEN 0.2 MG/DL (0.2-1.0)
[2017-07-01 12:15] LABS: BACTERIA RARE /HPF; EPITHELIAL CELLS RARE /HPF; MUCUS TRACE /LPF; RED BLOOD CELLS 0-5 /HPF (0-5); UCUL ADDED? NO; WHITE BLOOD CELLS 0-5 /HPF (0-5)
[2017-07-01 12:38] LABS: TROP-I INTERPRETATION NEGATIVE; TROPONIN-I < 0.01 ng/mL (0.0-0.30)
[2017-07-01 18:46] LABS: TROP-I INTERPRETATION NEGATIVE; TROPONIN-I < 0.01 ng/mL (0.0-0.30)
[2017-07-01 21:21] LABS: HEMATOCRIT 19.2 % (36.0-46.0)
[2017-07-01 21:22] LABS: HEMOGLOBIN 6.8 G/DL (11.9-15.5)
[2017-07-02] VITALS (8 sets, daily range): BP systolic 119–159; BP diastolic 57–82
[2017-07-02 07:29] LABS: HEMATOCRIT 22.8 % (36.0-46.0); HEMOGLOBIN 7.9 G/DL (11.9-15.5); IMM.RETIC FRACTION 28.4 % (3-19); MCH 28.7 PG (29.0-34.0); MCHC 34.6 G/DL (30.0-36.0); MCV 82.9 FL (83-99); NRBC (%) 0.3 /100 WBC (0-0); RBC DIS.WIDTH-CV 20.1 % (11.8-14.6); RBC DIS.WIDTH-SD 58.3 % (39-53); WHITE BLOOD COUNT 18.3 K/uL (4.1-10.2)
[2017-07-02 07:52] LABS: CHLORIDE 107 MEQ/L (99-109); CREATININE 1.8 MG/DL (0.6-1.3); GFR ESTIMATE (CALCULATED) 40 mL/min/; GLUCOSE 113 mg/dL (70-99); POTASSIUM 4.9 MEQ/L (3.7-5.4); SODIUM 137 MEQ/L (136-147); UREA NITROGEN (BUN) 33 mg/dL (9-23)
[2017-07-02 07:58] LABS: PLAT.SUFFICIENCY INCREASED; PLATELET COUNT 365 K/uL (156-360)
[2017-07-02 08:17] LABS: RED BLOOD COUNT 2.75 M/uL (3.80-5.20); RETICULOCYTE COUNT 6.1 % (0.5-1.8)
[2017-07-03] VITALS (8 sets, daily range): BP systolic 112–133; BP diastolic 55–84
[2017-07-03 06:39] LABS: BASOPHIL (%) 0.3 % (0-1); BASOPHIL COUNT 0.1 K/uL (0-0.1); EOSINOPHIL (%) 6.6 % (0-5); EOSINOPHIL COUNT 1.2 K/uL (0-0.3); HEMATOCRIT 22.6 % (36.0-46.0); HEMOGLOBIN 7.6 G/DL (11.9-15.5); IMM.RETIC FRACTION 23.6 % (3-19); IMMATURE GRANULOCYTE (%) 0.7 % (0.0-0.7); LYMPHOCYTE (%) 27.1 % (15-42); LYMPHOCYTE COUNT 4.8 K/uL (1.0-2.8); MCH 28.1 PG (29.0-34.0); MCHC 33.6 G/DL (30.0-36.0); MCV 83.7 FL (83-99); MONOCYTE (%) 14.4 % (3-12); MONOCYTE COUNT 2.6 K/uL (0-0.8); NEUTROPHIL (%) 50.9 % (45-76); NRBC (%) 0.3 /100 WBC (0-0); PLATELET COUNT 347 K/uL (156-360); RBC DIS.WIDTH-CV 20.7 % (11.8-14.6); RBC DIS.WIDTH-SD 61.5 % (39-53); RETIC HGB EQUIVALENT 31.8 (28-36); WHITE BLOOD COUNT 17.7 K/uL (4.1-10.2)
[2017-07-03 06:44] LABS: RETICULOCYTE COUNT 5.7 % (0.5-1.8)
[2017-07-03 07:03] LABS: CHLORIDE 106 MEQ/L (99-109); CREATININE 1.8 MG/DL (0.6-1.3); GFR ESTIMATE (CALCULATED) 40 mL/min/; GLUCOSE 105 mg/dL (70-99); POTASSIUM 4.9 MEQ/L (3.7-5.4); SODIUM 137 MEQ/L (136-147); UREA NITROGEN (BUN) 35 mg/dL (9-23)
[2017-07-03 13:59] LABS: HEMATOCRIT 22.6 % (36.0-46.0); HEMOGLOBIN 7.7 G/DL (11.9-15.5); MCH 28.6 PG (29.0-34.0); MCHC 34.1 G/DL (30.0-36.0); NRBC (%) 0.3 /100 WBC (0-0); RBC DIS.WIDTH-CV 21.5 % (11.8-14.6); RBC DIS.WIDTH-SD 64.6 % (39-53); RED BLOOD COUNT 2.69 M/uL (3.80-5.20); WHITE BLOOD COUNT 16.3 K/uL (4.1-10.2)
[2017-07-03 14:26] LABS: PLAT.SUFFICIENCY ADEQUATE; PLATELET COUNT 352 K/uL (156-360)
[2017-07-03 14:27] LABS: ALBUMIN 3.5 G/DL (3.2-4.8); ALKALINE PHOSPHATASE 224 IU/L (3-129); ALT (GPT) 42 IU/L (3-49); AST (GOT) 85 IU/L (2-34); CHLORIDE 108 MEQ/L (99-109); CREATININE 1.9 MG/DL (0.6-1.3); GFR ESTIMATE (CALCULATED) 37 mL/min/; GLUCOSE 139 mg/dL (70-99); SODIUM 137 MEQ/L (136-147); TOTAL BILIRUBIN 3.9 MG/DL (0.0-1.0); TOTAL PROTEIN 6.8 G/DL (6.4-8.3); UREA NITROGEN (BUN) 38 mg/dL (9-23)
[2017-07-03 20:14] LABS: APPEARANCE CLEAR ((CLEAR)); BILIRUBIN NEGATIVE; BLOOD MODERATE; COLOR YELLOW ((YELLOW)); GLUCOSE (STRIP) NEGATIVE; KETONES NEGATIVE; LEUKOCYTES NEGATIVE; NITRITE NEGATIVE; PROTEIN (STRIP) NEGATIVE; SPECIFIC GRAVITY 1.006 (1.000-1.030)
[2017-07-03 20:18] LABS: BACTERIA RARE /HPF; EPITHELIAL CELLS RARE /HPF; MUCUS TRACE /LPF; RED BLOOD CELLS 0-5 /HPF (0-5); UCUL ADDED? NO; WHITE BLOOD CELLS 0-5 /HPF (0-5)
[2017-07-04 04:02] VITALS: BP 125/60
[2017-07-04 06:33] LABS: IMM.RETIC FRACTION 15.8 % (3-19); RETIC HGB EQUIVALENT 30.5 (28-36)
[2017-07-04 08:56] VITALS: BP 126/76
[2017-07-04 10:02] LABS: BASOPHIL (%) 0.3 % (0-1); BASOPHIL COUNT 0.1 K/uL (0-0.1); EOSINOPHIL (%) 6.8 % (0-5); EOSINOPHIL COUNT 1.2 K/uL (0-0.3); HEMATOCRIT 22.5 % (36.0-46.0); HEMOGLOBIN 7.4 G/DL (11.9-15.5); IMMATURE GRANULOCYTE (%) 0.5 % (0.0-0.7); LYMPHOCYTE (%) 30.6 % (15-42); LYMPHOCYTE COUNT 5.3 K/uL (1.0-2.8); MCHC 32.9 G/DL (30.0-36.0); MCV 85.2 FL (83-99); MONOCYTE (%) 12.4 % (3-12); MONOCYTE COUNT 2.2 K/uL (0-0.8); NEUTROPHIL (%) 49.4 % (45-76); NEUTROPHIL COUNT 8.6 K/uL (1.8-6.4); NRBC (%) 0.3 /100 WBC (0-0); RBC DIS.WIDTH-CV 22.1 % (11.8-14.6); RBC DIS.WIDTH-SD 68.5 % (39-53); RED BLOOD COUNT 2.64 M/uL (3.80-5.20); WHITE BLOOD COUNT 17.4 K/uL (4.1-10.2)
[2017-07-04 10:33] LABS: PLAT.SUFFICIENCY ADEQUATE; PLATELET COUNT 343 K/uL (156-360)
[2017-07-04 12:26] VITALS: BP 124/57
[2017-07-04 17:53] VITALS: BP 116/67
[2017-07-04 19:52] VITALS: BP 124/66
[2017-07-04 23:52] VITALS: BP 143/71
[2017-07-05 06:46] LABS: ABSOLUTE RETICULOCYTE CT. 0.1 M/uL (0.02-0.08); IMM.RETIC FRACTION 5.8 % (3-19); RETIC HGB EQUIVALENT 30.7 (28-36)
[2017-07-05 06:50] LABS: RETICULOCYTE COUNT 2.4 % (0.5-1.8)
[2017-07-05 07:45] VITALS: BP 130/72
[2017-07-05 12:27] LABS: BASOPHIL (%) 0.6 % (0-1); BASOPHIL COUNT 0.1 K/uL (0-0.1); EOSINOPHIL (%) 8.7 % (0-5); EOSINOPHIL COUNT 1.4 K/uL (0-0.3); HEMATOCRIT 22.3 % (36.0-46.0); HEMOGLOBIN 7.2 G/DL (11.9-15.5); IMMATURE GRANULOCYTE (%) 0.5 % (0.0-0.7); LYMPHOCYTE (%) 25.5 % (15-42); LYMPHOCYTE COUNT 4.1 K/uL (1.0-2.8); MCH 27.7 PG (29.0-34.0); MCHC 32.3 G/DL (30.0-36.0); MCV 85.8 FL (83-99); MONOCYTE (%) 13.4 % (3-12); MONOCYTE COUNT 2.1 K/uL (0-0.8); NEUTROPHIL (%) 51.3 % (45-76); NEUTROPHIL COUNT 8.2 K/uL (1.8-6.4); PLATELET COUNT 345 K/uL (156-360); RBC DIS.WIDTH-CV 22.4 % (11.8-14.6); RBC DIS.WIDTH-SD 70.1 % (39-53); WHITE BLOOD COUNT 15.9 K/uL (4.1-10.2)
[2017-07-05 12:30] VITALS: BP 119/60
[2017-07-05 12:56] LABS: ALBUMIN 3.3 G/DL (3.2-4.8); ALKALINE PHOSPHATASE 212 IU/L (3-129); ALT (GPT) 47 IU/L (3-49); AST (GOT) 105 IU/L (2-34); DIRECT BILIRUBIN 1.7 mg/dL (0.0-0.3); TOTAL BILIRUBIN 4.2 MG/DL (0.0-1.0); TOTAL PROTEIN 6.9 G/DL (6.4-8.3)
[2017-07-05 15:50] VITALS: BP 124/68
[2017-07-06 00:56] VITALS: BP 139/67
[2017-07-06 06:30] LABS: LACTATE DEHYDROGENASE 605 IU/L (20-246)
[2017-07-06 08:12] VITALS: BP 128/72
[2017-07-06 09:13] LABS: BASOPHIL (%) 0.4 % (0-1); BASOPHIL COUNT 0.1 K/uL (0-0.1); EOSINOPHIL (%) 9.8 % (0-5); EOSINOPHIL COUNT 1.6 K/uL (0-0.3); HEMATOCRIT 20.3 % (36.0-46.0); IMMATURE GRANULOCYTE (%) 0.5 % (0.0-0.7); LYMPHOCYTE (%) 31.1 % (15-42); LYMPHOCYTE COUNT 5.2 K/uL (1.0-2.8); MCH 28.6 PG (29.0-34.0); MCV 86.8 FL (83-99); MONOCYTE (%) 14.3 % (3-12); MONOCYTE COUNT 2.4 K/uL (0-0.8); NEUTROPHIL (%) 43.9 % (45-76); NEUTROPHIL COUNT 7.3 K/uL (1.8-6.4); NRBC (%) 0.1 /100 WBC (0-0); PLATELET COUNT 313 K/uL (156-360); RBC DIS.WIDTH-CV 23.2 % (11.8-14.6); RBC DIS.WIDTH-SD 72.2 % (39-53); RED BLOOD COUNT 2.34 M/uL (3.80-5.20); WHITE BLOOD COUNT 16.7 K/uL (4.1-10.2)
[2017-07-06 09:14] LABS: HEMOGLOBIN 6.7 G/DL (11.9-15.5)
[2017-07-06 09:39] LABS: ALBUMIN 3.3 G/DL (3.2-4.8); ALKALINE PHOSPHATASE 204 IU/L (3-129); ALT (GPT) 44 IU/L (3-49); AST (GOT) 89 IU/L (2-34); CHLORIDE 110 MEQ/L (99-109); CREATININE 1.6 MG/DL (0.6-1.3); GFR ESTIMATE (CALCULATED) 46 mL/min/; GLUCOSE 120 mg/dL (70-99); POTASSIUM 4.8 MEQ/L (3.7-5.4); SODIUM 139 MEQ/L (136-147); TOTAL BILIRUBIN 3.5 MG/DL (0.0-1.0); TOTAL PROTEIN 6.8 G/DL (6.4-8.3); UREA NITROGEN (BUN) 41 mg/dL (9-23)
[2017-07-06 15:56] VITALS: BP 128/75
[2017-07-07 00:18] VITALS: BP 136/63
[2017-07-07 07:10] LABS: LACTATE DEHYDROGENASE 628 IU/L (20-246)
[2017-07-07 08:25] VITALS: BP 145/71
[2017-07-07 08:33] LABS: BASOPHIL (%) 0.5 % (0-1); BASOPHIL COUNT 0.1 K/uL (0-0.1); EOSINOPHIL (%) 6.5 % (0-5); HEMATOCRIT 21.3 % (36.0-46.0); IMMATURE GRANULOCYTE (%) 0.3 % (0.0-0.7); LYMPHOCYTE (%) 30.5 % (15-42); LYMPHOCYTE COUNT 4.6 K/uL (1.0-2.8); MCH 28.3 PG (29.0-34.0); MCHC 32.9 G/DL (30.0-36.0); MCV 86.2 FL (83-99); MONOCYTE (%) 13.4 % (3-12); NEUTROPHIL (%) 48.8 % (45-76); NEUTROPHIL COUNT 7.4 K/uL (1.8-6.4); PLATELET COUNT 322 K/uL (156-360); RBC DIS.WIDTH-CV 23.5 % (11.8-14.6); RBC DIS.WIDTH-SD 72.5 % (39-53); RED BLOOD COUNT 2.47 M/uL (3.80-5.20); WHITE BLOOD COUNT 15.2 K/uL (4.1-10.2)
[2017-07-07 09:09] LABS: CHLORIDE 112 MEQ/L (99-109); CREATININE 1.7 MG/DL (0.6-1.3); GFR ESTIMATE (CALCULATED) 42 mL/min/; GLUCOSE 97 mg/dL (70-99); POTASSIUM 4.9 MEQ/L (3.7-5.4); SODIUM 142 MEQ/L (136-147); UREA NITROGEN (BUN) 41 mg/dL (9-23)
[2017-07-07] MEDS ORDERED: MORPHINE SULFAT15 MG PO (12:06)
== END 2017-07-07 13:30 | disposition home or self-care (01) | DRG 810 ==
LOC: EME 03:14 → 5SOUTH 09:40 → EDOF 09:40 → ENRESERV 09:42 → 5SOUTH 15:10
PROVIDERS: Emergency Medicine; Hospitalist; Internal Medicine; Internal Medicine Hematology & Oncology; Internal Medicine Medical Oncology; Physician Assistant
PROC: 30233N1 Transfusion of Nonautologous Red Blood Cells into Peripheral Vein, Percutaneous Approach (ICD-10-PCS; principal; 2017-07-01)
DX: D59.9 Acquired hemolytic anemia, unspecified (principal); D57.00 Hb-SS disease with crisis, unspecified; N18.2 Chronic kidney disease, stage 2 (mild); R31.29 Other microscopic hematuria; I27.20 Pulmonary hypertension, unspecified; G89.29 Other chronic pain; H54.61 Unqualified visual loss, right eye, normal vision left eye; R74.0 Nonspecific elevation of levels of transaminase and lactic acid dehydrogenase [LDH]
CPT/HCPCS: 71045; 71046; 80048; 80048 91; 80053; 80076; 81003; 83615; 83615 90; 83625 90; 84484; 85014; 85018; 85025; 85025 91; 85027; 85046; 85610; 85730; 86850; 86900; 86901; 86920; 87040; 93005; 94010; 99281; 99285; J2270; J7030; P9016